=== PATIENT | female | born 1945 | race Caucasian/White ===

== ENCOUNTER 2025-05-08 13:59 | Outpatient (AMB) | payer OTHER, SELFPAY ==
--- OUTSIDE RECORDS SUMMARY | 2024-07-01 10:56 | XMS_ITS | Encounter Summary ---
Author Organization [facility] Address [address] [place] [address] Care Team Providers Care Keller Machine Operator Name Role Phone Gabe Shahid MD Primary Care Provider [phone] Encounter Details Date Type Department Care Team (Late st Contact Info) Description 07/01/2024 10:56 AM EDT Hospital Encounter TH HISTORIC ENCOUNTERS EASTERN CONVERSION ONLY Gabe Shahid MD [address] [facility] [address] [place] [phone] Social History Tobacco Use Types Packs/Day Years [...] Description 05/31/2025 8:10 AM EDT Office Visit [facility] - [address] [facility] [address] [place] [phone] Linsey Castro, ELIS [address] [place] [phone] 08/04/2025 10:20 AM EST Office Visit Gastroenterology - [address] [facility] [address] [place] [address] Natalie Le MD 299 [facility] [address] [place] [address] 01/18/2026 11:00 AM EDT Ancillary Procedure [facility] - [facility] [address] 300 [facility] 154 [place] [address] documented as of this encounter Procedures Procedure Name Priority Date/Time Associated Diagnosis Comments CR SPINE CERVICAL MIN 4 VIEWS Routine 07/04/2024 1:32 PM EDT documented in this encounter Results * CR SPINE CERVICAL MIN 4 VIEWS (07/04/2024 1:32 PM EDT) Anatomical Region Laterality Modality Radiographic Yin ging 07/01/2024 11:0 1 AM EDT Narrative 07/04/2024 1:32 PM EDT [facility] Diagnostic Imaging Department [address] [place] [address] Patient: MARJNGOZI /Age/Sex: 1945 - 79 - F Unit#: [id number] Location/Status: SPDIGEN/REG CLI Mnemonic/Ordering Site: SPINCER/SPDI Ordering Physician: GABE SHAHID MD CR Spine Cervical Min 4 Views - 07/01/241126 Report Status:Signed EXAMINATION: Cervical spine 4 views. [...] No visible acute fracture or dislocation seen. [id number] Dictating Physician: EULOGIO ALICIA Electronically Signed by: EULOGIO ALICIA Dic Date/Time: 07/04/24 1328 Sign date/Time: 07/04/24 1332 Procedure Note Eulogio Alicia MD - 07/12/2024 [facility] Diagnostic Imaging Department [address] [place] [address] Patient: NGOZI NELSON Bin [place]/Age/Sex: 1945 - 79 - F Unit#: [id number] Location/Status: SPDIGEN/REG CLI Mnemonic/Ordering Site: SPINCER/SPDI Ordering [...] No visible acute fracture or dislocation seen. [id number] Dictating Physician: EULOGIO ALICIA Electronically Signed by: [...] documented as of this encounter Care Teams Keller Machine Operator Relationship Specialty Start Date End Date Gabe Shahid MD [address] [place] [address] [place] [address] PCP - General 10/07/12 10/09/24 documented as of this encounter
--- OUTSIDE RECORDS SUMMARY | 2025-01-20 07:00 | XMS_ITS ---
Author Organization [facility] [place] Address [address] [facility] [address] [place] [address] Care Team Providers Care Spanish Translator Name Role Phone Butch Bo Unavailable [phone] REASON FOR VISIT Follow-up Appt Encounters Encounter Location Date Provider Diagnosis [address] [place] [address] 01/20/2025 Butch Bo Plan Of Treatment Next Appt Details Provider Name:Gwendolyn Turner, 05/29/2025 11:15:00 AM, 299 [facility], Suite [facility], [place], [address], [phone] Progress Notes * JOHN MCMAHANDOB:1945 (80 yo F)Acc No.[id number]:01/20/2025 Progress Notes Patient: JOHN VENEGAS Provider: Saúl ARMAS :1945 A ge:79 Y S ex:Female Date:01/20/2025 Address:[address] [place], [place] [phone] Subjective: * Chief Complaints: * F ollow-up Appt * Ocular Surgical History: Objective: Vision Examination: * Electronic signature of Dk Bo PA-C on 05/08/2025 at 03:22 PM EDT Sign off status: Pending * Provider: Saúl ARMAS Date: 0 01/20/2025 Generated for Printi ng/Faxing/eTransmitting on: 0 05/08/2025 03:22 PM EDT
--- OUTSIDE RECORDS SUMMARY | 2025-01-31 12:00 | XMS_ITS ---
Author Organization [facility] [place] Address [address] [facility] [address] [place] [address] Care Team Providers Care Merchandiser Seasonal Name Role Phone Butch Bo Unavailable [phone] REASON FOR VISIT Follow-up Appt Encounters Encounter Location Date Provider Diagnosis [facility], [address] [place] [address] 01/31/2025 Butch Bo Plan Of Treatment Next Appt Details Provider Name:Gwendolyn Turenr, 05/29/2025 11:15:00 AM, 299 [facility], Suite [facility], [place], [address], [phone] Progress Notes * JOHN MCMAHANDOB:1945 (80 yo F)Acc No.[id number]:01/31/2025 Progress Notes Patient: JOHN VENEGAS Provider: Saúl ARMAS :1945 A ge:79 Y S ex:Female Date:01/31/2025 Address:[address] [place], [place] [phone] Subjective: * Chief Complaints: * F ollow-up Appt * Ocular Surgical History: Objective: Vision Examination: * Electronic signature of Dk Bo PA-C on 05/08/2025 at 03:22 PM EDT Sign off status: Pending * Provider: Saúl ARMAS Date: 01/31/2025 Generated for Printi ng/Faxing/eTransmitting on: 0 05/08/2025 03:22 PM EDT
--- OUTSIDE RECORDS SUMMARY | 2025-03-29 12:30 | XMS_ITS ---
Author Organization [facility] [place] Address [address] [address] Care Team Providers Care Hospice Consultant Name Role Phone Gwendolyn Turner [phone] REASON FOR VISIT medication refill Medications Medication SIG (Take, Route, Frequency, Duration) Notes Start Date End Date Status Carvedilol 12.5 MG Tablet 1 tablet with food Orally Twice a day Active Losartan Potassium 100 MG Tablet 1 tablet Orally Once a day; Duration: 90 days Active Encounters Encounter Location Date Provider Diagnosis [facility], [address] [address] 03/29/2025 Gwendolyn Turner Benign essential hypertension I10 [...] Details Provider Name:Gwendolyn Turner, 05/29/2025 11:15:00 AM, [address] [place] [address], [place], [address], [phone] Progress Notes * MARJJOHN NESSDOB:1945 (80 yo F)Acc No.[id number]:03/29/2025 Patient: JOHN VENEGAS Provider: Carrie Turner :1945 A ge:80 Y S ex:Female Date:03/29/2025 Address:[address] [place], [place] [phone] Subjective: * Chief Complaints: * M edication [...] * Electronic signature of Hemalatha Turner on 05/08/2025 at 03:21 PM EDT Sign off status: Pending * Provider: Carrie Turner Date: 03/29/2025 Generated for Shanda silveira/Kenny/Isaías on: 05/08/2025 03:21 PM EDT
--- NOTE | 2025-05-08 14:06 | MHC.OFFVIS ---
Intake Visit Reasons: Hospital Follow Up Allergies erythromycin base Allergy (Unknown, Verified 05/01/25 16:01) Unknown lisinopril (From Zestril) Allergy (Unknown, Verified 05/01/25 16:01) Unknown HPI Comments Details: 80 years old woman with ulcerative colitis, atrial fibrillation, hypertension, and cardiac pacemaker was seen in September of 2024 for gait disorder and anxiety. She had a CAT scan of brain done in [facility] revealing mild microvascular ischemic disease of brain. An MRI of brain at [facility] in December of 2024 revealed mild diffuse cerebral atrophy and mild microvascular ischemic changes. With no specific treatment for gait disorder, escitalopram 10 mg was prescribed for management of anxiety. She is presenting with visual aura and word retrieval issues, with a differential diagnosis of seizure and migraine. She describes experiencing visual auras up to once every two months, starting with pinwheel lights in both eyes, which this time lasted for three hours. Onset occasions match descriptions as migraine aura without progression to headache. These episodes infrequently disrupt speech, resolved over approximately 24 hours, without residual deficits reported. She has undergone emergency assessments, including delayed MRI post-pacemaker installation, and experiences consistent yet transient visual phenomena alongside speech retrieval difficulties. [facility] Medical History (Updated 05/08/25 @ 14:41 by Lian Thayer MD) Multifactorial gait disorder Osteoarthritis Cerebral microvascular disease Anxiety disorder Review of Systems Const Details: - Neurologic: Reports visual aura with colorful pinwheel lights in both eyes lasting for several hours. Reports transient inability to retrieve words, difficulty recalling current president and birthdate during episodes. Reports staccato speech pattern during episodes. Denies associated headache. - Cardiovascular: Reports presence of pacemaker. - General: Reports history of multiple similar episodes over several years, typically resolving over 24 hours. Assessment & Plan Assessment & Plan (1) Anxiety: Code(s): F41.9 - Anxiety disorder, unspecified Category: Medical (2) Migraine equivalent syndrome: Comment: MRI brain WO at [facility] in Apr 2025: Questionable tiny acute infarct vs imaging artifact in left gonzalez radiata, mild T2 Flair lesions, ?MVD (reported) Code(s): G43.109 - Migraine with aura, not intractable, without status migrainosus Category: Medical (3) Seizure disorder: Code(s): G40.909 - Epilepsy, unspecified, not intractable, without status epilepticus Category: Medical (4) Cerebral microvascular disease: Code(s): I67.89 - Other cerebrovascular disease Category: Medical Plan Impression recommendations: The symptoms she reported to me most likely are from migraine causing migraine equivalent syndrome. The other differential diagnosis would be complex partial seizure disorder, which seems unlikely. This was not description of a stroke or transient ischemic attack. No changes in medicines are needed. As far as MRI report is concerned, unfortunately I was not able to open her CD. Even reading the report, diagnosis of stroke was uncertain. And finally, even if we except that as a new lesion, it would not explain her symptoms. Orders: Orders EEG electroencephalogram Today G40.909 - Epilepsy, unspecified, not intractable, without status epilepticus Coding Level of Care Code Est Pt Level 5 (04089) Diagnoses Anxiety F41.9 Migraine equivalent syndrome G43.109 Seizure disorder G40.909 Cerebral microvascular disease I67.89
--- OUTSIDE RECORDS SUMMARY | 2025-05-08 15:21 | XMS_ITS | Patient Health Record ---
Author Organization [facility] [place] Address [address] [facility] [address] [place] [address] Care Team Providers Care Burial Needs Salesperson Name Role Phone Butch Bo Unavailable [phone] Migration, Provider Unavailable Unavailable Gwendolyn Turner Unavailable [phone] Reason For Referral No Information Medications Medication SIG (Take, Route, Frequency, Duration) Notes Start Date End Date Status Carvedilol 12.5 MG Tablet 1 tablet with food Orally Twice a day Active Losartan Potassium 100 MG Tablet 1 tablet Orally Once a day; Duration: 90 days Active Encounters Encounter Location Date Provider Diagnosis [facility], [address] [address] 05/12/2024 Provider Migration [facility], [address] [address] 06/13/2024 Provider Migration [facility], [address] [address] 07/12/2024 Provider Migration [facility], [address] [address] 09/22/2024 Provider Migration [facility], [place] [address] [address] 10/04/2024 Provider Migration [facility], [address] [address] 10/04/2024 Butch Bo [facility] [place] [address] [address] 01/03/2025 Butch Bo [facility], [address] [address] 01/13/2025 Butch Bo [facility], [address] [address] 01/20/2025 Butch Bo [facility] [place] [address] [facility] [address] [place] [address] 01/31/2025 Butch Bo [facility] [place] [address] [facility] [address] [place] [address] 03/29/2025 Gwendolyn Turner Benign essential hypertension I10 Assessments Encounter Date Diagnosis (ICD Code) Assessment Notes Treatment Notes Treatment Clinical Notes Section Notes 03/29/2025 Benign essential hypertension (ICD-10 - I10) Plan Of Treatment Next Appt Details Provider Name:Gwendolyn Turner, 05/29/2025 11:15:00 AM, [address] [facility], [address] [facility], [place], [address], [phone] Insurance Providers Payer Name Payer Address Payer Phone Subscriber Number Group Number Insured Name Patient Relationship to Insured Coverage Start Date Coverage End Date [facility] Insurance [address] [place] [address] [id number] JOHN MCMAHAN Self - patient is the insured
--- OUTSIDE RECORDS SUMMARY | 2025-05-08 15:22 | XMS_ITS | Encounter Summary ---
Author Organization [facility] [address] Address [address] [place] [address] Care Team Providers Care In Flight Refueling Craftsman Name Role Phone Butch Bo Primary Care Provider [phone] Reason for Visit * Reason Onset Date Comments Appointment 04/24/2025 Encounter Details Date Type Department Care Team (Late st Contact Info) Description 04/24/2025 Telephone [facility] Cardiology [facility] [address] [facility] [address] [place] [phone] Delon Wasserman MD [address] [facility] [address] [place] [address] Social History Tobacco Use Types Packs/Day Years [...] on file documented as of this encounter Progress Notes * Rosalinda Arredondo MA - 04/25/2025 3:36 PM EDT Records have been scanned in and attached to telephone encounter. * CHANDA Serna - 04/24/2025 3:50 PM EDT Can you please obtain [facility] records and scanned in for follow-up visit with SL * Hailey Rueda - 04/24/2025 3:23 PM EDT Patient's daughter called to schedule a hospital follow up appointment. Informed the the daughter someone will contact her with an appointment and if she has any questions she is more than welcomed to call the office back. documented in this encounter Plan of Treatment Upcoming Encounters Date Type Department Care Team (Late st Contact Info) Description 05/31/2025 8:10 AM EDT Office Visit [facility] Cardiology [facility] [address] [phone] Linsey Castro NP [address] [facility] [address] [place] [address] 08/04/2025 10:20 AM EST Office Visit Gastroenterology - [address] [address] Natalie Le MD [address] [address] 01/18/2026 11:00 AM EDT Ancillary Procedure [facility] [address] [phone] documented as of this encounter Visit Diagnoses Not on filedocumented in this encounter Care Teams In Flight Refueling Craftsman Relationship Specialty Start Date End Date Butch Bo PA [address] [address] PCP - General Primary Care 10/10/24 documented as of this encounter
--- OUTSIDE RECORDS SUMMARY | 2025-05-08 15:22 | XMS_ITS | Encounter Summary ---
Author Organization [facility] Address [address] [place] [address] Care Team Providers Care Acid Plant Helper Name Role Phone uBtch Bo Primary Care Provider [phone] Encounter Details Date Type Department Care Team (Late Contact Info) Description 07/20/[address] [facility] Cardiology [facility] - [facility] [address] 300 [facility] 154 [place] [address] Linsey Castro NP 300 [facility] [address] [place] [address] Social History Tobacco Use Types Packs/Day Years [...] Encounters Date Type Department Care Team (Late Contact Info) Description 05/31/2025 8:10 AM EDT Office Visit [facility] Cardiology [facility] - [facility] 154 300 [facility] 154 [place] [address] Linsey Castro NP 300 [facility] [address] [place] [address] 08/04/2025 10:20 AM EST Office Visit Gastroenterology - 299 [address] 299 [facility] [address] [place] [address] Natalie Le MD [address] [facility] [address] [place] [address] 01/18/2026 11:00 AM EDT Ancillary Procedure [facility] - [facility] [address] [facility] 154 [place] [phone] documented as of this encounter Visit Diagnoses Not on filedocumented in this encounter Additional Health Concerns Infection Onset Date Last Indicated Resolved Time C. difficile Rule-Out 01/06/2025 01/06/20252024 2:14 PM EDT Gastrointestinal Rule-Out 01/06/2025 01/06/2025 3:45 PM EDT documented as of this encounter Care Teams Acid Plant Helper Relationship Specialty Start Date End Date Butch Bo PA 299 [facility] [address] [place] [address] PCP - General Primary Care 10/10/24 documented as of this encounter
--- OUTSIDE RECORDS SUMMARY | 2025-05-08 15:22 | XMS_ITS | Encounter Summary ---
Author Organization [facility] Address [address] [place] [address] Care Team Providers Care Hydroelectric Station Chief Name Role Phone Butch Bo Primary Care Provider [phone] Encounter Details Date Type Department Care Team (Late Contact Info) Description 01/31/2025 Lab Requisition [facility] - Main Lab 299 [facility] [place] [phone] Butch Bo PA [address] [facility] [address] [place], [place] [id number] Essential (primary) hypertension; Cardiac arrhythmia, unspecified; Chronic fatigue, unspecified; Other detention (current) drug therapy Social History Tobacco Use Types Packs/Day Years [...] Description 05/31/2025 8:10 AM EDT Office Visit [facility] - [address] [facility] [address] [place] [address] LatLinsey pop NP 300 [facility] 154 [place] [phone] 08/04/2025 10:20 AM EST Office Visit Gastroenterology - 299 [address] 299 [facility] [address] [place] [address] Naatlie Le MD 299 [facility] 419 [place] [address] 01/18/2026 11:00 AM EDT Ancillary Procedure [facility] - [facility] [address] 300 [facility] 154 [place] [phone] documented as of this encounter Procedures Procedure Name Priority Date/Time Associated Diagnosis Comments URINALYSIS WITH REFLEX MICROSCOPIC AND CULTURE Routine 01/31/2025 12:00 AM EDT Essential (primary) hypertension Cardiac arrhythmia, unspecified Chronic fatigue, unspecified Other detention (current) drug therapy ALVAREZ URINE CULTURE TUBE Routine 01/31/2025 12:00 AM EDT Essential (primary) hypertension Cardiac arrhythmia, unspecified Chronic fatigue, unspecified Other detention (current) drug therapy TIGER TOP URINE TUBE Routine 01/31/2025 12:00 AM EDT Essential (primary) hypertension Cardiac arrhythmia, unspecified Chronic fatigue, unspecified Other detention (current) drug therapy YELLOW URINE NO ADDITIVE Routine 01/31/2025 12:00 AM EDT Essential (primary) hypertension Cardiac arrhythmia, unspecified Chronic fatigue, unspecified Other termite treater (current) drug therapy URINALYSIS WITH REFLEX MICROSCOPIC AND CULTURE Routine 01/31/2025 12:00 AM EDT Essential (primary) hypertension Cardiac arrhythmia, unspecified Chronic fatigue, unspecified Other detention (current) drug therapy CULTURE URINE Routine 01/31/2025 12:00 AM EDT Essential (primary) hypertension Cardiac arrhythmia, unspecified Chronic fatigue, unspecified Other termite treater (current) drug therapy documented in this encounter Results * Culture urine (01/31/2025 12:00 AM EDT) Culture, Urine 10,000-49,000 CFU/mL Mixed urogenital mar ykate, no uropathogens present. Suggest repeat specimen if clinically indicated. 02/02/2025 11:36 AM EDT [facility] Urine Urine specimen obtained by clean catch procedure / Unknown 01/31/2025 01/31/2025 10:12 PM EDT [facility] MICROBIOLOGY - GENERAL ORD ERABLES Final Result Performing Organization Address City/[facility]/ZIP Co de Phone Number [facility] [address] [place] [address], [place] [phone] * Yellow urine no additive (01/31/2025 12:00 AM EDT) Extra Tube Hold for add-ons. 01/31/2025 8:01 PM EDT [facility] Comment:Auto resulted. Urine Urine specimen obtained by clean catch procedure / Unknown 01/31/2025 01/31/2025 6:26 PM EDT us [facility] URINE ORDERABLES Final Res ult [facility] [address] [place] [address], [place] [phone] * Rickman top urine tube (01/31/2025 12:00 AM EDT) Extra Tube Hold for add-ons. 01/31/2025 8:01 PM EDT [facility] Comment:Auto resulted. Urine Urine specimen obtained by clean catch procedure / Unknown 01/31/2025 01/31/2025 6:13 PM EDT [facility] URINE ORDERABLES Final Res ult Performing Organization Address [facility]/ZIP Co de Phone Number [facility] [address] [place] [address], [place] [phone] * Alvarez urine culture tube (01/31/2025 12:00 AM EDT) Pathologist [facility] Extra Tube Hold for add-ons. 01/31/2025 8:01 PM EDT [facility] Comment:Auto resulted. Urine Urine specimen obtained by clean catch procedure / Unknown 01/31/2025 01/31/2025 6:13 PM EDT [facility] URINE ORDERABLES Final Res ult Performing Organization Address [facility]/ZIP Co de Phone Number [facility] [address] [place] [address], [place] [phone] * (ABNORMAL) Urinalysis with reflex microscopic and culture (01/31/2025 12:00 AM EDT) [facility] Specific Gamaliel Urine 1.007 1.003 - 1.030 LAB URINALYSIS - AUTOMATED METHOD 01/31/2025 10:12 PM [facility] pH, Urine 6.0 5.0 - 8.0 pH LAB URINALYSIS - AUTOMATED METHOD 01/31/2025 10:12 PM [facility] Leukocytes, Urine Large(A) Negative LAB URINALYSIS - AUTOMATED METHOD 01/31/2025 10:12 PM [facility] Nitrite, Urine Negative Negative LAB URINALYSIS - AUTOMATED METHOD 01/31/2025 10:12 PM [facility] Protein, Urine Negative <=Trace mg/dL LAB URINALYSIS - AUTOMATED METHOD 01/31/2025 10:12 PM [facility] Glucose, Urine Negative Negative mg/dL LAB URINALYSIS - AUTOMATED METHOD [facility] Ketones, Urine Negative Negative mg/dL LAB URINALYSIS - AUTOMATED METHOD 01/31/2025 10:12 PM [facility] Urobilinogen, Urine 0.2 0.2 - 1.0 mg/dL LAB URINALYSIS - AUTOMATED METHOD 01/31/2025 10:12 PM [facility] Bilirubin, Urine Negative Negative LAB URINALYSIS - AUTOMATED METHOD 01/31/2025 10:12 PM [facility] Blood, Urine Negative Negative LAB URINALYSIS - AUTOMATED METHOD 01/31/2025 10:12 PM [facility] RBC, Urine 4.0 0 - 4 /HPF LAB URINALYSIS - AUTOMATED METHOD 01/31/2025 10:12 PM [facility] WBC, Urine 75.3(H) 0 - 4 /HPF LAB URINALYSIS - AUTOMATED METHOD 01/31/2025 10:12 PM [facility] Squamous Epithelial, Urine 67(H) 0 - 60 /LPF LAB URINALYSIS - AUTOMATED METHOD 01/31/2025 10:12 PM [facility] Bacteria, Urine Few(A) Negative /HPF LAB URINALYSIS - AUTOMATED METHOD 01/31/2025 10:12 PM [facility] Hyaline Casts, Urine 2.0 0 - 3 /LPF LAB URINALYSIS - AUTOMATED METHOD 01/31/2025 10:12 PM [facility] Urine Urine specimen obtained by clean catch procedure / Unknown 01/31/2025 01/31/2025 6:13 PM EDT us [facility] URINE ORDERABLES Final Res ult [facility] [address] [place] [address], [place] [phone] documented in this encounter Visit Diagnoses Diagnosis Essential (primary) hypertension Unspecified essential hypertension Cardiac arrhythmia, unspecified Chronic fatigue, unspecified Other termite treater (current) drug therapy Encounter for adjustment or management of cardiac device documented in this encounter Care Teams Hydroelectric Station Chief Relationship Specialty Start Date End Date Butch Bo PA [address] [place] [address] PCP - General Primary Care 10/10/24 documented as of this encounter
--- OUTSIDE RECORDS SUMMARY | 2025-05-08 15:22 | XMS_ITS | Clinical Summary ---
Author Organization [facility] Address [address] [place] [address] Care Team Providers Care Keno Writer / Runner Name Role Phone Danilo Shahid MD Primary Care Provider [phone] Allergies Active Allergy Reactions Criticality Noted Date Comments Mesalamine 10/05/2020 Calcium 10/05/2020 Lisinopril 10/05/2020 Medications Medication Sig Dispensed Refills Start Date End Date Status Probiotic Product (ALIGN) 4 MG CAPS Take 4 mg by mouth daily. 0 Active BIOTIN PO Take by mouth daily. 0 Acti ve betamethasone valerate (VALISONE) 0.1 % cream Apply 1 application topically 2 (two) times a day. 0 Active carvedilol (COREG) 6.25 MG tablet Take 6.25 mg by mouth 2 (two) times a day with meals. 0 Active cyanocobalamin 1000 MCG tablet Take 1,000 mcg by mouth daily. 0 Active folic acid (FOLVITE) tablet 1 mg Take 1 mg by mouth daily. 0 Active loperamide (IMODIUM) 2 MG capsule Take 2 mg by mouth 2 (two) times a day. 0 Active losartan (COZAAR) 100 MG tablet Take 100 mg by mouth daily. 0 Active Dronedarone HCl (MULTAQ) 400 MG tablet Take 400 mg by mouth 2 (two) times a day with meals. 0 Active mesalamine (PENTASA) 250 MG CR capsule Take 500 mg by mouth 4 (four) times a day. 0 Active sertraline (ZOLOFT) 50 MG tablet Take 50 mg by mouth daily. 0 Active ascorbic acid (VITAMIN C) 500 MG tablet Take 500 mg by mouth daily. 0 Active vitamin D3 (VITAMIN D3) 25 MCG (1000 UT) tablet Take 1,000 Units by mouth daily. 0 Active rivaroxaban (Xarelto) 20 MG TABS tablet Take 20 mg by mouth every evening. 0 Active Mesalamine-Cleanser (ROWASA) [address] rectally every other day. 0 Active cyanocobalamin (VITAMIN B12) 1000 MCG/ML injection Inject 1,000 mcg into the muscle every 21 days. 0 Active potassium chloride ER (K-DUR,KLOR-CON) tablet 10 mEq Take 10 mEq by mouth daily. 0 Active Multiple Vitamins-Minerals (CENTRUM ADULTS PO) Take by mouth daily. 0 Active Active Problems Problem Noted Date Diagnosed Date Ulcerative colitis 10/28/2020 Osteopenia 10/28/2020 Hypertension 10/28/2020 Paroxysmal atrial fibrillation 10/28/2020 Anticoagulated by anticoagulation treatment 10/15 Sick sinus syndrome 10/28/2020 Family History Medical History Relation Name Comments Hypertension Brother Heart disease Father Hypothyroidism Mother Atrial fibrillation Sister Relation Name Status Comments Brother Alive Father (Age 66) [place] at age 44 Mother (Age 89) No specifi c cause of noted Sister Alive Social History Tobacco Use Types Packs/Day Years Used Date Smoking Tobacco: Never Smokeless Tobacco: Never Alcohol Use Standard Drinks/Week Comments No 0 (1 standard drink = 0.6 oz pur e alcohol) Sex and Gender Information Value Date Recorded Sex Assigned at Not on file Gender Identity Not on file Sexual Orientation Not on file Job Start Date Occupation Industry Not on file Not on file Not on file Last Filed Vital Signs Vital Sign Reading Time Taken Comments Blood Pressure 155/78 10/19/2020 10:46 AM EST Pulse 65 10/19/2020 10:46 AM EST Temperature 36.2 C (97.1 F) 10/19/2020 10:46 AM EST Respiratory Rate - - Oxygen Saturation 100% 10/19/2020 10:46 AM EST Inhaled Oxygen Concentration - - Weight 71.8 kg (158 lb 6.4 oz) 10/19/2020 10:46 AM EST Height 162.6 cm (5' 4 ) 10/19/2020 10:46 AM EST Body Mass Index 27.19 10/19/2020 10:46 AM EST Plan of Treatment Health Maintenance Due Date Last Done Comments Hepatitis C Screening 1945 COVID-19 Vaccine (#1) 1945 Depression Screening 1959 Preventative Health Evaluation 1965 DTap / Tdap / Td (1 - Tdap) 1966 Shingrix-Zoster Vaccine (1 of 2) 1997 Fall Risk Assessment 02/13/2012 Osteoporosis Screening (DEXA Scan) 02/13/2012 Pneumococcal Vaccine (1 of 1 - PCV) 02/13/2012 RSV Adult > 60+ Yrs or Pregn ant (1 - 1-dose 75+ series) 2022 Influenza Vaccine (#1) 2025 Hepatitis B Vaccines Aged Out No long er eligible based on patient's age to complete this topic RSV Ped < 20 months Aged Out No longe r eligible based on patient's age to complete this topic Care Teams Keno Writer / Runner Relationship Specialty Start Date End Date Danilo Shahid MD [address] [place] [address] PCP - General Internal Medicine 10/19/20
--- OUTSIDE RECORDS SUMMARY | 2025-05-08 15:22 | XMS_ITS | Clinical Summary ---
Author Organization [address] [place] [address] Address [address] [place] [address] Phone Care Team Providers Care Welding Machine Operator Electron Beam Name Role Phone Butch Bo Primary Care Provider [phone] Allergies Active Allergy Reactions Criticality Noted Date Comments Calcium 10/05/2020 Calcium Channel Blocking Age nt Diltiazem Analogues 05/06/2024 Lisinopril Hives High 10/05/2020 Mesalamine 10/05/2020 Nifedipine 07/01/2024 Medications biotin 5,000 mcg tablet,disinteg rating Take 5,000 mcg by mouth 2 (two) times a day. Active dronedarone (Multaq) 400 mg tablet Take 1 tablet (400 mg total) by mouth 2 (two) times a day with meals. Active potassium chloride (KLOR-CON M10) 10 mEq CR tablet Take 1 tablet (10 mEq total) by mouth 1 (one) time each day if needed. Tablet may be swallowed whole (do not crush/chew/suck on) OR broken in half and each half swallowed separately OR dissolved (whole tablet) in ~4 ounces of water (allow ~2 minutes to dissolve, stir well and administer immediately). Active folic acid (FOLVITE) 1 mg tablet Take 1 tablet (1 mg total) by mouth 1 (one) time each day. Active meclizine (ANTIVERT) 25 mg tablet Take 1 tablet (25 mg total) by mouth 3 (three) times a day if needed for dizziness. Active Pentasa 500 mg CR capsuleIndicati ons:ulcerative colitis TAKE 2 CAPSULES (1,000 MG TOTAL) BY MOUTH 4 (FOUR) TIMES A DAY. DO NOT CRUSH, CHEW, OR SPLIT. 720 each 3 08/16/20 24 025 Active Xarelto 20 mg tablet TAKE 1 TABLET BY MOUTH EVERY DAY 90 tablet 3 09/20/19 25 Active carvediloL (COREG) 12.5 mg tablet Take 1.5 tablets by mouth twice a day 270 tablet 3 09/21/19 25 Active syringe with needle (BD Luer-Anabella Syringe) 3 mL 22 gauge x 1 syringeIndicati ons:B12 deficiency USE TO INJECT B12 SHOT EVERY MONTH 4 each 3 11/03/19 25 Active escitalopram (LEXAPRO) 10 mg tablet Take 1 tablet (10 mg total) by mouth 1 (one) time each day. Active cholecalciferol (VITAMIN D-3) 10 mcg (400 unit) tablet Take 1 tablet (400 Units total) by mouth 1 (one) time each day. Active cyanocobalamin (VITAMIN B-12) 1,000 mcg/mL injectionIndica tions:Low vitamin B12 level Inject 1 mL (1,000 mcg total) under the skin every 30 (thirty) days. 3 mL 04/26/20 25 Active losartan-hydroC HLOROthiazide (Hyzaar) 100-25 mg per tablet Take 1 tablet by mouth 1 (one) time each day. 30 each 04/28/20 25 Active losartan (COZAAR) 100 mg tablet Take 1 tablet (100 mg total) by mouth 1 (one) time each day. 025 Discontinu ed(Alterna te therapy) cyanocobalamin (VITAMIN B-12) 1,000 mcg/mL injectionIndica tions:Low vitamin B12 level INJECT 1ML SUBCUTANEOUSLY ONCE A MONTH 3 mL 02/14/20 25 025 Discontinu ed(Reorder ) mesalamine (ROWASA) 4 gram/60 mL enemaIndication s:Irritable bowel syndrome, unspecified type INSERT 1 ENEMA INTO RECTUM AT BEDTIME DIRECTED 1 each 2 03/27/20 25 025 losartan-hydroC HLOROthiazide (Hyzaar) 100-25 mg per tablet Take 1 tablet by mouth 1 (one) time each day. 90 each 3 04/27/20 25 025 Discontinu ed(Reorder ) Active Problems Problem Noted Date Diagnosed Date PVC (premature ventricular contraction) 01/21/20 22 Pure hypercholesterolemia 02/27/2021 Paroxysmal atrial fibrillation (CMS/HCC V24, CMS /HCC V28) 02/27/2021 Assessment & Plan (01/31/2025 2:47 PM EDT): 1 brief episode of atrial fibrillation while dealing with a GI virus. Currently maintaining sinus rhythm. She is anticoagulated we spent some time talking about possibly placing a left atrial appendage closure device. She has a [id number] score of 3 documented atrial fibrillation and potential rationale with syncopal episodes and she will give that some thought. I did discuss the procedure the potential complications and procedural aspects in detail with her and her daughter. Continue with Ina. Would consider pulmonary vein isolation at the time of left atrial appendage closure if she moved ahead with that. Assessment & Plan (07/19/2024 8:31 AM EST): No recurrence. Multiple Apple Watch EKGs with complaints of fluttering, she questions recurrence of atrial fibrillation. Review of these reveals either a sinus rate above her pacing rate or isolated PACs. Confirmed no atrial fibrillation. Tolerating anticoagulant without issues of bleeding. Normal renal function, risks and benefits discussed. Palpitations 02/27/2021 Benign essential hypertension 02/27/2021 Assessment & Plan (01/31/2025 2:47 PM EDT): Systolic blood pressure somewhat elevated. She did come off of spironolactone as she was quite dehydrated after GI illness. She is on losartan and carvedilol. I encouraged a low-sodium diet particularly given some mild dependent ankle edema. I am a bit reluctant to make her blood pressure regimen more aggressive given her spells of lightheadedness. I asked her to check her blood pressure during these episodes to see if she gets any low readings. I would not rule out going back on spironolactone if necessary. Assessment & Plan (07/19/2024 8:33 AM EST): Multiple medication combinations, trialed, fatigue did not improve with discontinuation of carvedilol. She resumed at 12-1/2 mg twice daily with discontinuation of spironolactone. Admits that blood pressure was much better controlled on spironolactone but she does not wish to retrial. We did discuss that spironolactone would not calls an isolated loose stool. Agreed to increase carvedilol to 1-1/2 tablets twice daily. She will keep a blood pressure log and report back via the portal. She maintains a healthy weight and diet and activity level. Sick sinus syndrome (CMS/HCC V24, CMS/HCC V28) 0 12/12/2020 Assessment & Plan (01/31/2025 2:45 PM EDT): History of sick sinus syndrome noted normally functioning dual-chamber pacemaker. The device was programmed to AAI mode as the patient was very sensitive to ventricular pacing. Given her episodes of near syncope I am going to cmm programmer her to a dual-chamber mode with a very long AV delay to minimize pacing. She is okay with this trial. Her NE interval is quite normal and I doubt that she is having heart block but certainly possible if she is having vagal episodes. 2 years of battery longevity. I did lower the lower rate to 60 bpm Assessment & Plan (07/19/2024 8:30 AM EST): Normally functioning pacemaker, pacing 66%. Adequate HR variability. 40% battery life Encounters Date Type Department Care Team Description 05/05/2025 Telephone [facility] - [address] [place] [address] Delon Wasserman MD 04/27/2025 Telephone [facility] - [address] [place] [address] Delon Wasserman MD 04/24/2025 Telephone [facility] - [address] [place] [address] Delon Wasserman MD 03/28/2025 9:35 AM EDT Ancillary Procedure [facility] - [address] [place] [address] 03/07/2025 11:10 AM EDT Office Visit [facility] - [address] [place] [address] Linsey Castro, CEMETERY WORKERS SUPERVISOR Paroxysmal atrial fibrillation (CMS/HCC V24, CMS/HCC V28) (Primary Dx) from Last 3 Months Medical History Medical History Date Comments Sick sinus syndrome (CMS/HCC V24, CMS/HCC V28) Benign essential hypertension Palpitations Paroxysmal atrial fibrillation (CMS/HCC V24, CMS /HCC V28) PVC (premature ventricular contraction) Crohn disease (CMS/HCC V24, CMS/HCC V28) Social History Tobacco Use Types Packs/Day Years Used Date Smoking Tobacco: Never Smokeless Tobacco: Never Alcohol Use Standard Drinks/Week Comments Not Currently 0 (1 standard drink = 0.6 oz pur e alcohol) Comments Unknown Sex and Gender Information Value Date Recorded Sex Assigned at Not on file Legal Sex Female 2:02 AM EST Gender Identity Not on file Sexual Orientation Not on file Obstetrics History Last Filed Vital Signs Vital Sign Reading Time Taken Comments Blood Pressure 140/80 03/07/2025 10:57 AM EDT Pulse 70 03/07/2025 10:57 AM EDT Temperature 36.7 C (98 F) 01/03/2025 11:07 PM EDT Respiratory Rate 17 01/04/2025 12:33 AM EDT Oxygen Saturation 97% 03/07/2025 10:57 AM EDT Inhaled Oxygen Concentration - - Weight 68.5 kg (151 lb) 03/07/2025 10:57 AM EDT Height 157.5 cm (5' 2 ) 03/07/2025 10:57 AM EDT Body Mass Index 27.62 03/07/2025 10:57 AM EDT Plan of Treatment Upcoming Encounters Date Type Department Care Team (Late st Contact Info) Description 05/31/2025 8:10 AM EDT Office Visit [facility] - [address] [place] [address] Linsey Castro NP [address] [place] [phone] 08/04/2025 10:20 AM EST Office Visit Gastroenterology - [address] [facility] [address] [place] [address] Natalie Le MD 299 [facility] [address] [place] [address] 01/18/2026 11:00 AM EDT Ancillary Procedure [facility] - [facility] [address] [facility] [address] [place] [phone] Health Maintenance Due Date Last Done Comments Pneumococcal Vaccine: 50+ Years (1 of 1 - PCV) 1997 Falls Risk Assessment 08/23/2022 Hepatitis C Screening 08/23/2022 Osteoporosis Screening (Bone Density Screening) 08/23/2022 Social Influencers of Health Screening 08/23/2022 Depression Screening 09/14/2024 COVID-19 Vaccine ( season) 2024 06/23/2024, 08/18/2023, 10/22/2022, Additional history exists Influenza Vaccine (#1) 2025 , 06/18/2022, 06/11/2021, Additional history exists Hypertension/CHF/CAD Annual BMP Blood Test 01/03/2026 01/03/2025, 01/03/2025, 05/06/2024, Additional history exists Cholesterol Screening (Lipid Panel) 01/03/2030 01/03/2025 DTaP,Tdap,and Td Vaccines (2 - Td or Tdap) 12/31/2030 12/31/2020 Zoster Vaccines Completed 01/01/2022, 10/04/2021 RSV Immunization Adult Patients Completed 08/01/2024 Colorectal Cancer Screening: Colonoscopy Discontinued 12/02/2024 HIB Vaccines Aged Out No longer eligi ble based on patient's age to complete this topic HPV Vaccines Aged Out No longer eligi ble based on patient's age to complete this topic Hepatitis A Vaccines Aged Out No long er eligible based on patient's age to complete this topic Hepatitis B Vaccines Aged Out No long er eligible based on patient's age to complete this topic IPV Vaccines Aged Out No longer eligi ble based on patient's age to complete this topic MMR Vaccines Aged Out No longer eligi ble based on patient's age to complete this topic Meningococcal ACWY Vaccine Aged Out N o longer eligible based on patient's age to complete this topic Meningococcal B Vaccine Aged Out No l onger eligible based on patient's age to complete this topic RSV Immunization Patients Under 20 months Aged Out No longer eligible based on patient's age to complete this topic Varicella Vaccines Aged Out No longer eligible based on patient's age to complete this topic Medical Devices Implanted Type Area Financial Services Rep Device Identifier Shelf Expiration Date Model / Serial / Lot SaloinCollecta Jeanna 8 Brittany [id number] Implanted:12/2014 (Quantity not on file) Cardiac Pacemaker [employer] FAISALUNA 8 BRITTANY / [id number] / Procedures Procedure Name Priority Date/Time Associated Diagnosis Comments EXTERNAL CLINICAL LAB Routine 04/24/2025 3:34 PM EDT CARDIAC DEVICE CHECK- REMOTE- MURJ Routine 03/28/2025 9:33 AM EDT COMPREHENSIVE METABOLIC PANEL Routine 01/03/2025 12:43 PM EDT Essential hypertension, malignant Avitaminosis D Ventricular arrhythmia LIPID PANEL WITH REFLEX TO DIRECT LDL Routine 01/03/2025 12:43 PM EDT Essential hypertension, malignant Avitaminosis D Ventricular arrhythmia EXTERNAL COLONOSCOPY REPORT Routine 12/02/2024 10:01 AM EDT from Last 3 Months or Most Recently Relevant to Health Maintenance Results * External clinical lab (04/24/2025 3:34 PM EDT) us Historical Provider LAB BLOOD ORDERABLES Shelia l Result * Cardiac device check - Remote- MURJ (03/28/2025 9:33 AM EDT) Date Time Interrogation Session [id number] CV DEVICE CHECK Type Interrogation Session Remote CV DEVICE CHECK Implantable Pulse Generator Financial Services Rep BIO CV DEVICE CHECK Implantable Pulse Generator Type IPG CV DEVICE CHECK Implantable Pulse Generator Model Eluna 8 BRITTANY CV DEVICE CHECK Implantable Pulse Generator Serial Number [id number] CV DEVICE CHECK Implantable Pulse Generator Implant Date [id number] CV DEVICE CHECK Battery Remaining Percentage 35.00 CV DEVICE CHECK Battery Status Middle of Service CV DEVICE CHECK Wesley Statistic RA Percent Paced 40.00 CV DEVICE CHECK Wesley Statistic RV Percent Paced 17.00 CV DEVICE CHECK Atrial Tachy Statistic AT/AF [place] Percent 0.00 CV DEVICE CHECK Lead Channel Sensing Intrinsic Amplitude 0.600 CV DEVICE CHECK Lead Channel Setting Sensing Sensitivity 0.50 CV DEVICE CHECK Lead Channel Impedance Value 429 CV DEVICE CHECK Lead Channel Pacing Threshold Amplitude 1.200 CV DEVICE CHECK Lead Channel Pacing Threshold Pulse Width 0.4 CV DEVICE CHECK Lead Channel RA Pacing Threshold Date 2025-03-23 CV DEVICE CHECK Lead Channel Setting Pacing Amplitude 2.200 CV DEVICE CHECK Lead Channel Setting Pacing Pulse Width 0.4 CV DEVICE CHECK Lead Channel Sensing Intrinsic Amplitude 1.700 CV DEVICE CHECK Lead Channel Impedance Value 332 CV DEVICE CHECK Lead Channel RV Pacing Threshold Date 2025-03-23 CV DEVICE CHECK Lead Channel Setting Pacing Amplitude 3.000 CV DEVICE CHECK Lead Channel Setting Pacing Pulse Width 0.4 CV DEVICE CHECK Wesley Setting Mode (NBG Code) DDD CV DEVICE CHECK Wesley Setting Lower Rate Limit 60 CV DEVICE CHECK Wesley Setting AT Mode Switch Rate 160 CV DEVICE CHECK Wesley Setting Maximum Tracking Rate 130 CV DEVICE CHECK Wesley Setting Maximum Sensor Rate 120 CV DEVICE CHECK Wesley Setting PAV Delay 140 CV DEVICE CHECK Wesley Setting TRINO Delay 115 CV DEVICE CHECK Date of Service 2025-05-30 CV DEVICE CHECK Anatomical Region Laterality Modality Device Interroga tion 03/23/2025 2:49 AM EDT Impressions 03/28/2025 9:27 AM EDT Normal Remote: No Events RV Capture control disabled / RV sensing < limit* Normal Device Function * Alerts or events: None * Battery: Battery is at 35%, * Sensing, impedance and thresholds reviewed * Programmed parameters reviewed * Presenting rhythm reviewed * Heart Rate Histograms reviewed * No significant changes noted Narrative Procedure Note Apurva Muhammad PA - 03/28/2025 IMPRESSION: Normal Remote: No Events RV Capture control disabled / RV sensing < limit* Normal Device Function * Alerts or events: None * Battery: Battery is at 35%, * Sensing, impedance and thresholds reviewed * Programmed parameters reviewed * Presenting rhythm reviewed * Heart Rate Histograms reviewed * No significant changes noted us Apurva ARMAS CV IMPLANTABLE CARDIAC DEVICE NE OCEDURES Final Result * (ABNORMAL) Lipid panel with reflex to direct LDL (01/03/2025 12:43 PM EDT) Cholesterol 224(H) 0 - 200 mg/dL LAB CHEMISTRY METHOD 01/03/2025 3:12 PM EDT [facility] Triglycerides 72 0 - 150 mg/dL LAB CHEMISTRY METHOD 01/03/2025 3:12 PM EDT [facility] HDL 87 >=40 mg/dL LAB CHEMISTRY METHOD 01/03/2025 3:12 PM EDT [facility] LDL Calculated 123(H) 0 - 100 mg/dL LAB CHEMISTRY METHOD 01/03/2025 3:12 PM EDT [facility] VLDL Cholesterol Derick 14.4 mg/dL LAB CHEMISTRY METHOD 01/03/2025 3:12 PM EDT [facility] Non HDL Chol. (LDL+VLDL) 137 <145 mg/dL LAB CHEMISTRY METHOD 01/03/2025 3:12 PM EDT [facility] Chol/HDL Ratio 2.6 0.0 - 4.4 LAB CHEMISTRY METHOD 01/03/2025 3:12 PM EDT [facility] Blood Venous blood specimen / Unknown Venipuncture / Unknown 01/03/2025 12:43 PM EDT 01/03/2025 1:31 PM EDT us Butch ARMAS LAB BLOOD ORDERABLES Final Res ult [facility] [address] [place] [address], [place] [phone] * (ABNORMAL) Comprehensive metabolic panel (01/03/2025 12:43 PM EDT) Sodium 134 133 - 145 mmol/L LAB CHEMISTRY METHOD 01/03/2025 3:10 PM [facility] Potassium 4.0 3.5 - 5.5 mmol/L LAB CHEMISTRY METHOD 01/03/2025 3:10 PM [facility] Chloride 101 96 - 110 mmol/L LAB CHEMISTRY METHOD 01/03/2025 3:10 PM [facility] CO2 23 21 - 32 mmol/L LAB CHEMISTRY METHOD 01/03/2025 3:10 PM [facility] Anion Gap 10 3 - 11 LAB CHEMISTRY METHOD 01/03/2025 3:10 PM [facility] Glucose 103(H) 70 - 100 mg/dL LAB CHEMISTRY METHOD 01/03/2025 3:10 PM [facility] BUN 5 5 - 25 mg/dL LAB CHEMISTRY METHOD 01/03/2025 3:10 PM [facility] Creatinine 0.54 0.50 - 1.10 mg/dL LAB CHEMISTRY METHOD 01/03/2025 3:10 PM [facility] eGFR 95 >=60 mL/min/1. 73m2 LAB CHEMISTRY METHOD 01/03/2025 3:10 PM [facility] Comment:Calculation based on the Chronic Kidney Disease Epidemiology Collaboration (CKD-EPI) equation refit without adjustment for race. BUN/Creatinine Ratio 9.3 LAB CHEMISTRY METHOD 01/03/2025 3:10 PM [facility] Calcium 9.2 8.5 - 10.5 mg/dL LAB CHEMISTRY METHOD 01/03/2025 3:10 PM [facility] AST (SGOT) 13 10 - 42 unit/L LAB CHEMISTRY METHOD 01/03/2025 3:10 PM [facility] ALT (SGPT) 15 10 - 60 unit/L LAB CHEMISTRY METHOD 01/03/2025 3:10 PM [facility] Alkaline Phosphatase 86 42 - 121 unit/L LAB CHEMISTRY METHOD 01/03/2025 3:10 PM EDT [facility] Total Protein 7.1 6.0 - 8.0 g/dL LAB CHEMISTRY METHOD 01/03/2025 3:10 PM EDT [facility] Albumin 3.7 3.2 - 5.0 g/dL LAB CHEMISTRY METHOD 01/03/2025 3:10 PM EDT [facility] Total Bilirubin 1.7(H) 0.0 - 1.4 mg/dL LAB CHEMISTRY METHOD 01/03/2025 3:10 PM EDT [facility] Blood Venous blood specimen / Unknown Venipuncture / Unknown 01/03/2025 12:43 PM EDT 01/03/2025 1:31 PM EDT Butch ARMAS LAB BLOOD ORDERABLES Final Res ult [facility] [address] [place] [address], [place] [phone] * External Colonoscopy Report (12/02/2024 10:01 AM EDT) Anatomical Region Laterality Modality Endoscopy Historical Provider GI~PROCEDURE ORDERABLES F inal Result from Last 3 Months or Most Recently Relevant to Health Maintenance Insurance [employer] Care Teams Welding Machine Operator Electron Beam Relationship Specialty Start Date End Date Butch Bo PA [address] [place] [address] PCP - General Primary Care 10/10/24
--- OUTSIDE RECORDS SUMMARY | 2025-05-08 15:22 | XMS_ITS | Encounter Summary ---
Author Organization [facility] Address [address] [place] [address] Care Team Providers Care Roving Technician Name Role Phone Butch Bo Primary Care Provider [phone] Reason for Visit * Reason Onset Date Comments Med Refill 05/05/2025 Encounter Details Date Type Department Care Team (Late st Contact Info) Description 05/05/2025 Telephone [facility] - [facility] [address] [facility] [address] [place] [phone] Delon Wasserman MD 300 [facility] [address] [place] [address] Social History Tobacco Use Types Packs/Day Years [...] as of this encounter Progress Notes * Ricardo Landrum - 05/05/2025 4:23 PM EDT Refill request for losartan for a 90 day supply and please send to [facility]. documented in this encounter Plan of Treatment Upcoming Encounters Date Type Department Care Team (Late st Contact Info) Description 05/31/2025 8:10 AM EDT Office Visit [facility] [address] [facility] [address] [place] [phone] Linsey Castro, ELIS 300 [facility] [address] [place] [address] 08/04/2025 10:20 AM EST Office Visit Gastroenterology - [address] [facility] [address] [place] [address] Natalie Le MD 299 [facility] [address] [place] [address] 01/18/2026 11:00 AM EDT Ancillary Procedure [facility] [address] [facility] [address] [place] [phone] documented as of this encounter Visit Diagnoses Not on filedocumented in this encounter Care Teams Roving Technician Relationship Specialty Start Date End Date Butch Bo PA 299 [facility] [address] [place] [address] PCP - General Primary Care 10/10/24 documented as of this encounter
== END 2025-05-08 14:37 | disposition home or self-care (01) ==
LOC: HO.HSM 14:00
PROVIDERS: PCP Internal Medicine; Visit Provider Psychiatry & Neurology Neurology
DX: F41.9 Anxiety disorder, unspecified (principal); G43.109 Migraine with aura, not intractable, without status migrainosus; G40.909 Epilepsy, unspecified, not intractable, without status epilepticus; I67.89 Other cerebrovascular disease
CPT/HCPCS: 99214

== ENCOUNTER 2025-05-16 14:27 | Outpatient (REF) | payer OTHER, SELFPAY ==
--- OUTSIDE RECORDS SUMMARY | 2024-07-01 10:56 | XMS_ITS | Encounter Summary ---
Author Organization [facility] Address [address] [place] [address] Care Team Providers Care Waste Management Specialist Name Role Phone Gabe Shahid MD Primary Care Provider [phone] Encounter Details Date Type Department Care Team (Late st Contact Info) Description 07/01/2024 10:56 AM EDT Hospital Encounter TH HISTORIC ENCOUNTERS EASTERN CONVERSION ONLY Gabe Shahid MD [address] [facility] [address] [place] [phone] Social History Tobacco Use Types Packs/Day Years Used Date Smoking Tobacco: Never Smokeless Tobacco: Never Alcohol Use Standard Drinks/Week Comments Not Currently 0 (1 standard drink = 0.6 oz pur e alcohol) Comments Unknown Sex and Gender Information Value Date Recorded Sex Assigned at Not on file Legal Sex Female 2:02 AM EST Gender Identity Not on file Sexual Orientation Not on file documented as of this encounter Plan of Treatment Upcoming Encounters Date Type Department Care Team (Late st Contact Info) Description 05/31/2025 8:10 AM EDT Office Visit [facility] - [address] [facility] [address] [place] [phone] Linsey Castro, ELIS [address] [place] [phone] 08/04/2025 10:20 AM EST Office Visit Gastroenterology - [address] [facility] [address] [place] [phone] Natalie Le MD [address] [place] [address] 01/18/2026 11:00 AM EDT Ancillary Procedure [facility] [address] [facility] [address] [place] [address] documented as of this encounter Procedures Procedure Name Priority Date/Time Associated Diagnosis Comments CR SPINE CERVICAL MIN 4 VIEWS Routine 07/04/2024 1:32 PM EDT documented in this encounter Results * CR SPINE CERVICAL MIN 4 VIEWS (07/04/2024 1:32 PM EDT) Anatomical Region Laterality Modality Radiographic Yin ging 07/01/2024 11:0 1 AM EDT Narrative 07/04/2024 1:32 PM EDT [facility] Diagnostic Imaging Department [address] [place] [address] Patient: NGOZI NELSON Bin /Age/Sex: 1945 - 79 - F Unit#: [id number] Location/Status: SPDIGEN/REG CLI Mnemonic/Ordering Site: SPINCER/SPDI Ordering Physician: GABE SHAHID MD CR Spine Cervical Min 4 Views - 07/01/24 - 7 Report Status:Signed EXAMINATION: Cervical spine 4 views. CLINICAL INDICATION: Neck pain x3 months. COMPARISON: None. FINDINGS: Vertebral bodies are normal in size, shape and alignment. There is maintained cervical lordosis. The vertebral heights and alignment is appears normal. There is posterior spinous fusion C2 and C3 vertebra. There is loss of C6-7 described. Rest of disc heights are maintained normal. On oblique views there is mild bilateral narrowing of C5-6 and right C4-5 new foraminal narrowing. There is mild ventral spondylosis at this C6-7 disc level. No acute fracture, lytic or sclerotic process seen. The soft tissues are normal. The prevertebral soft tissues are normal. IMPRESSION: Degenerative disc changes C6/7 disc level with ventral spondylosis. There is bilateral C6-7 and mild right C5-C6 neural foraminal narrowing from uncovertebral hypertrophic changes. No visible acute fracture or dislocation seen. [id number] Dictating Physician: EULOGIO ALICIA Electronically Signed by: EULOGIO ALICIA Dic Date/Time: 07/04/24 1328 Sign date/Time: 07/04/24 1332 Procedure Note Eulogio Alicia MD - 07/12/2024 [facility] Diagnostic Imaging Department [address] [place] [address] Patient: NGOZI NELSON D.O.B./Age/Sex: 1945 - 79 - F Unit#: [id number] Location/Status: SPDIGEN/REG CLI Mnemonic/Ordering Site: SPINCER/SPDI Ordering Physician: GABE SHAHID MD CR Spine Cervical Min 4 Views - 07/01/24 - 1127 Report Status:Signed EXAMINATION: Cervical spine 4 views. CLINICAL INDICATION: Neck pain x3 months. COMPARISON: None. FINDINGS: Vertebral bodies are normal in size, shape and alignment. There ismaintained cervical lordosis. The vertebral heights and alignment is appears normal.There is posterior spinous fusion C2 and C3 vertebra. There is loss of C6-7described. Rest of disc heights are maintained normal. On oblique views there ismild bilateral narrowing of C5-6 and right C4-5 new foraminal narrowing. Thereis mild ventral spondylosis at this C6-7 disc level. No acute fracture, lyticor sclerotic process seen. The soft tissues are normal. The prevertebralsoft tissues are normal. IMPRESSION: Degenerative disc changes C6/7 disc level with ventralspondylosis. There is bilateral C6-7 and mild right C5-C6 neural foraminal narrowingfrom uncovertebral hypertrophic changes. No visible acute fracture or dislocation seen. [id number] Dictating Physician: EULOGIO ALICIA Electronically Signed by: EULOGIO ALICIA Dic Date/Time: 07/04/24 1328 Sign date/Time: 07/04/24 1332 Gabe Shahid MD IMG XR PROCEDURES Final Result documented in this encounter Visit Diagnoses Not on filedocumented in this encounter Additional Health Concerns Infection Onset Date Last Indicated Resolved Time C. difficile Rule-Out 01/06/2025 01/06/20252024 2:14 PM EDT Gastrointestinal Rule-Out 01/06/2025 01/06/2025 3:45 PM EDT documented as of this encounter Care Teams Waste Management Specialist Relationship Specialty Start Date End Date Gabe Shahid MD [address] [facility] [address] [place] [phone] PCP - General 10/07/12 10/09/24 documented as of this encounter
--- OUTSIDE RECORDS SUMMARY | 2025-05-16 09:20 | XMS_ITS | Encounter Summary ---
Author Organization [facility] Address [address] [place] [address] Care Team Providers Care Warehouse Specialist Name Role Phone Butch Bo Primary Care Provider [phone] Encounter Details Date Type Department Care Team (Late st Contact Info) Description 05/16/2025 9:20 AM EDT Ancillary Procedure [facility] - [facility] [address] 300 [facility] 154 [place] [address] Arrived Social History Tobacco Use Types Packs/Day Years [...] Description 05/31/2025 8:10 AM EDT Office Visit [facility] - [facility] [address] [facility] 154 [place] [address] Linsey Castro NP [address] [place] [phone] 08/04/2025 10:20 AM EST Office Visit Gastroenterology - [address] [place] [phone] Natalie Le MD [address] [place] [phone] 01/18/2026 11:00 AM EDT Ancillary Procedure [facility] - [address] [place] [phone] documented as of this encounter Procedures Procedure Name Priority Date/Time Associated Diagnosis Comments CARDIAC DEVICE CHECK- REMOTE- MURJ Routine 05/16/2025 9:19 AM EDT documented in this encounter Results * Cardiac device check - Remote- MURJ (05/16/2025 9:19 AM EDT) Date Time Interrogation Session [id number] CV DEVICE CHECK Type Interrogation Session Remote CV DEVICE CHECK Implantable Pulse Generator Out Of School Hours Care Worker BIO CV DEVICE CHECK Implantable Pulse Generator Type IPG CV DEVICE CHECK Implantable Pulse Generator Model Eluna 8 DR-T CV DEVICE CHECK Implantable Pulse Generator Serial Number [id number] CV DEVICE CHECK Implantable Pulse Generator Implant Date [id number] CV DEVICE CHECK Battery Remaining Percentage 35.00 CV DEVICE CHECK Battery Status Middle of Service CV DEVICE CHECK Wesley Statistic RA Percent Paced 59.00 CV DEVICE CHECK Wesley Statistic RV Percent Paced 8.00 CV DEVICE CHECK Atrial Tachy Statistic AT/AF Reading Percent 0.00 CV DEVICE CHECK Lead Channel Sensing Intrinsic Amplitude 1.100 CV DEVICE CHECK Lead Channel Setting Sensing Sensitivity 0.50 CV DEVICE CHECK Lead Channel Impedance Value 429 CV DEVICE CHECK Lead Channel Pacing Threshold Amplitude 0.900 CV DEVICE CHECK Lead Channel Pacing Threshold Pulse Width 0.4 CV DEVICE CHECK Lead Channel RA Pacing Threshold Date 2025-05-12 CV DEVICE CHECK Lead Channel Setting Pacing Amplitude 1.900 CV DEVICE CHECK Lead Channel Setting Pacing Pulse Width 0.4 CV DEVICE CHECK Lead Channel Sensing Intrinsic Amplitude 1.700 CV DEVICE CHECK Lead Channel Impedance Value 351 CV DEVICE CHECK Lead Channel RV Pacing Threshold Date 2025-05-12 CV DEVICE CHECK Lead Channel Setting Pacing [...] Anatomical Region Laterality Modality Device Interroga tion 05/12/2025 1:53 AM EDT Impressions 05/16/2025 9:17 AM EDT Heart Failure Diagnostic: Elevated * Heart failure diagnostics assessed through the device * Status: Elevated * Thoracic Impedance is well above typical range * Patient discharged from [facility] about 2 weeks ago after MRI revealed possible stroke, med changes noted in chart * Message sent to triage to assess patient. Narrative Procedure Note Apurva Muhammad PA - 05/16/2025 IMPRESSION: Heart Failure Diagnostic: Elevated * Heart failure diagnostics assessed through the device * Status: Elevated * Thoracic Impedance is well above typical range * Patient discharged from [facility] about 2 weeks ago after MRI revealedpossible stroke, med changes noted in chart * Message sent to triage to assess patient. us Apurva ARMAS CV IMPLANTABLE CARDIAC DEVICE DC OCEDURES Final Result documented in this encounter Visit Diagnoses Not on filedocumented in this encounter Care Teams Warehouse Specialist Relationship Specialty Start Date End Date Butch Bo PA [address] [place] [address] PCP - General Primary Care 10/10/24 documented as of this encounter
--- OUTSIDE RECORDS SUMMARY | 2025-05-16 15:40 | XMS_ITS | Encounter Summary ---
Author Organization [facility] Address [address] [place] [address] Care Team Providers Care Nutritional Health Coach Name Role Phone Butch Bo Primary Care Provider [phone] Reason for Visit * Reason Onset Date Comments Appointment 04/24/2025 Encounter Details Date Type Department Care Team (Late st Contact Info) Description 04/24/2025 Telephone [facility] [address] [place] [address] Delon Wasserman MD [address] [place] [address] [address] [place] [address] Social History Tobacco Use Types Packs/Day Years [...] Description 05/31/2025 8:10 AM EDT Office Visit [facility] [address] 300 [facility] 154 [place] [address] Linsey Castro FELLER MACHINE OPERATOR 300 [facility] 154 [place] [address] 08/04/2025 10:20 AM EST Office Visit Gastroenterology - [address] [facility] 419 [place] [address] Natalie Le MD [address] [place] [address] 01/18/2026 11:00 AM EDT Ancillary Procedure [facility] - [facility] [address] 300 [facility] 154 [place] [phone] documented as of this encounter Visit Diagnoses Not on filedocumented in this encounter Care Teams Nutritional Health Coach Relationship Specialty Start Date End Date Butch Bo PA 299 [facility] 322 [place] [address] PCP - General Primary Care 10/10/24 documented as of this encounter
--- OUTSIDE RECORDS SUMMARY | 2025-05-16 15:40 | XMS_ITS | Encounter Summary ---
Author Organization [facility] Address [address] [place] [address] Care Team Providers Care Awning Hanger Helper Name Role Phone Butch Bo Primary Care Provider [phone] Encounter Details Date Type Department Care Team (Late Contact Info) Description 07/20/2024 Nurse Triage [facility] - [facility] 154 300 [facility] 154 [place] [address] Linsey Castro NP 300 [facility] 154 [place] [address] Social History Tobacco Use Types [...] Description 05/31/2025 8:10 AM EDT Office Visit [facility] - [facility] 154 300 [facility] 154 [place] [address] Linsey Castro NP 300 [facility] 154 [place] [address] 08/04/2025 10:20 AM EST Office Visit Gastroenterology - 299 [facility] 299 [facility] 419 [place] [address] Natalie Le MD 230 [place] [address] 01/18/2026 11:00 AM EDT Ancillary Procedure [facility] - [facility] 154 300 [facility] 154 [place] [address] documented as of this encounter Visit Diagnoses Not on filedocumented in this encounter Additional Health Concerns Infection Onset Date Last Indicated Resolved Time C. difficile Rule-Out 01/06/2025 01/06/20252024 2:14 PM EDT Gastrointestinal Rule-Out 01/06/2025 01/06/2025 3:45 PM EDT documented as of this encounter Care Teams Awning Hanger Helper Relationship Specialty Start Date End Date Butch Bo PA 299 [facility] 322 [place] [address] PCP - General Primary Care 10/10/24 documented as of this encounter
--- OUTSIDE RECORDS SUMMARY | 2025-05-16 15:40 | XMS_ITS | Encounter Summary ---
Author Organization [facility] Address [address] [place] [address] Care Team Providers Care Tree Fruit And Nut Farming Supervisor Name Role Phone Butch Bo Primary Care Provider [phone] Encounter Details Date Type Department Care Team (Late st Contact Info) Description 05/12/2025 Telephone [facility] - [facility] [address] [facility] [address] [place] [address] Delia Ruff MA Social History Tobacco Use Types Packs/Day Years [...] as of this encounter Progress Notes * Estrella Cain RN - 05/16/2025 8:47 AM EDT Please review MY CHART message * Bel Castellanos RN - 05/12/2025 3:56 PM EDT Attempted to contact pt. Call does not connect/carrier issue. Will reattempt. * Delia Ruff MA - 05/12/2025 7:26 AM EDT Heart failure diagnostics available in this device are suggestive of volume overload. Please phone patient to assess for symptoms of heart failure exacerbation: Weight gain, orthopnea, PND, increasedexertional dyspnea, recent clinical events, dietary indiscretion. Please convey this information to the primary cardiology team or go to as appropriate. Of note, patient was discharged from [facility] about 2 weeks ago with med changes after MRI revealed possible stroke. documented in this encounter Plan of Treatment Upcoming Encounters Date Type Department Care Team (Late st Contact Info) Description 05/31/2025 8:10 AM EDT Office Visit [facility] - [facility] [address] [facility] 154 [place] [address] Linsey Castro NP [address] [place] [address] 08/04/2025 10:20 AM EST Office Visit Gastroenterology - [address] [facility] [address] [place] [address] Natalie Le MD [address] [place] [address] 01/18/2026 11:00 AM EDT Ancillary Procedure [facility] [address] [facility] 154 [place] [address] documented as of this encounter Visit Diagnoses Not on filedocumented in this encounter Discontinued Medications Medication Sig Discontinue Reason Start Date End Da te carvediloL (COREG) 12.5 mg tablet Take 1.5 tablets by mouth twice a day Dose adjustment 09/21/2024 05/16/2025 documented as of this encounter Historical Medications * This list may reflect changes made after this encounter. carvediloL (COREG) 25 mg tablet Take 1 tablet (25 mg total) by mouth 2 (two) times a day with meals. 04/28/2025 added in this encounter Care Teams Tree Fruit And Nut Farming Supervisor Relationship Specialty Start Date End Date Butch Bo PA [address] [place] [address] PCP - General Primary Care 10/10/24 documented as of this encounter
--- OUTSIDE RECORDS SUMMARY | 2025-05-16 15:40 | XMS_ITS | Encounter Summary ---
Author Organization [facility] Address [address] [place] [address] Care Team Providers Care Office Machine Repair Shop Supervisor Name Role Phone Butch Bo Primary Care Provider [phone] Encounter Details Date Type Department Care Team (Late Contact Info) Description 01/31/2025 Lab Requisition [facility] - Main Lab 299 [facility] [place] [address] Butch Bo PA 299 [facility] 322 [place], [place] [phone] Essential (primary) hypertension; Cardiac arrhythmia, unspecified; Chronic fatigue, unspecified; Other terminal gauger supervisor (current) drug therapy Social History Tobacco Use [...] Description 05/31/2025 8:10 AM EDT Office Visit [facility] - [address] [facility] [address] [place] [address] Linsey Castro, IRRIGATOR [address] [place] [address] 08/04/2025 10:20 AM EST Office Visit Gastroenterology - [address] [place] [address] Natalie Le MD 230 [place] [address] 01/18/2026 11:00 AM EDT Ancillary Procedure [facility] - [address] [place] [address] documented as of this encounter Procedures Procedure Name Priority Date/Time Associated Diagnosis Comments URINALYSIS WITH REFLEX MICROSCOPIC AND CULTURE Routine 01/31/2025 12:00 AM EDT Essential (primary) hypertension Cardiac arrhythmia, unspecified Chronic fatigue, unspecified Other terminal gauger supervisor (current) drug therapy ALVAREZ URINE CULTURE TUBE Routine 01/31/2025 12:00 AM EDT Essential (primary) hypertension Cardiac arrhythmia, unspecified Chronic fatigue, unspecified Other senior living (current) drug therapy TIGER TOP URINE TUBE Routine 01/31/2025 12:00 AM EDT Essential (primary) hypertension Cardiac arrhythmia, unspecified Chronic fatigue, unspecified Other terminal gauger supervisor (current) drug therapy YELLOW URINE NO ADDITIVE Routine 01/31/2025 12:00 AM EDT Essential (primary) hypertension Cardiac arrhythmia, unspecified Chronic fatigue, unspecified Other terminal gauger supervisor (current) drug therapy URINALYSIS WITH REFLEX MICROSCOPIC AND CULTURE Routine 01/31/2025 12:00 AM EDT Essential (primary) hypertension Cardiac arrhythmia, unspecified Chronic fatigue, unspecified Other terminal gauger supervisor (current) drug therapy CULTURE URINE Routine 01/31/2025 12:00 AM EDT Essential (primary) hypertension Cardiac arrhythmia, unspecified Chronic fatigue, unspecified Other terminal gauger supervisor (current) drug therapy documented in this encounter Results * Culture urine (01/31/2025 12:00 AM EDT) Culture, Urine 10,000-49,000 CFU/mL Mixed urogenital mary kate, no uropathogens present. Suggest repeat specimen if clinically indicated. 02/02/2025 11:36 AM EDT [facility] Urine Urine specimen obtained by clean catch procedure / Unknown 01/31/2025 01/31/2025 10:12 PM EDT Butch ARMAS LAB MICROBIOLOGY - GENERAL ORD ERABLES Final Result Performing Organization Address [facility]/ZIP Co de Phone Number [facility] [address] [place] [address], [place] [phone] * Yellow urine no additive (01/31/2025 12:00 AM EDT) Extra Tube Hold for add-ons. 01/31/2025 8:01 PM EDT [facility] Comment:Auto resulted. Urine Urine specimen obtained by clean catch procedure / Unknown 01/31/2025 01/31/2025 6:26 PM EDT Butch ARMAS LAB URINE ORDERABLES Final Res ult Performing Organization Address City/[facility]/ZIP Co de Phone Number [facility] [address] [place] [address], [place] [phone] * [place] top urine tube (01/31/2025 12:00 AM EDT) Extra Tube Hold for add-ons. 01/31/2025 8:01 PM EDT [facility] Comment:Auto resulted. Urine Urine specimen obtained by clean catch procedure / Unknown 01/31/2025 01/31/2025 6:13 PM EDT Butch ARMAS LAB URINE ORDERABLES Final Res ult [facility] [address] [place] [address], [place] [phone] * Alvarez urine culture tube (01/31/2025 12:00 AM EDT) [facility] Extra Tube Hold for add-ons. 01/31/2025 8:01 PM EDT [facility] Comment:Auto resulted. Urine Urine specimen obtained by clean catch procedure / Unknown 01/31/2025 01/31/2025 6:13 PM EDT Butch ARMAS LAB URINE ORDERABLES Final Res ult Performing Organization Address [facility]/State/ZIP Co de Phone Number [facility] [address] [place] [address], [place] [phone] * (ABNORMAL) Urinalysis with reflex microscopic and culture (01/31/2025 12:00 AM EDT) [facility] Specific [place] Urine 1.007 1.003 - 1.030 LAB URINALYSIS - AUTOMATED METHOD 01/31/2025 10:12 PM [facility] pH, Urine 6.0 5.0 - 8.0 pH LAB URINALYSIS - AUTOMATED METHOD 01/31/2025 10:12 PM [facility] Leukocytes, Urine Large(A) Negative LAB URINALYSIS - AUTOMATED METHOD 01/31/2025 10:12 PM [facility] Nitrite, Urine Negative Negative LAB URINALYSIS - AUTOMATED METHOD 01/31/2025 10:12 PM [facility] Protein, Urine Negative <=Trace mg/dL LAB URINALYSIS - AUTOMATED METHOD 01/31/2025 10:12 PM [facility] Glucose, Urine Negative Negative mg/dL LAB URINALYSIS - AUTOMATED METHOD 01/31/2025 10:12 PM [facility] Ketones, Urine Negative Negative mg/dL LAB URINALYSIS - AUTOMATED METHOD 01/31/2025 10:12 PM [facility] Urobilinogen, Urine 0.2 0.2 - 1.0 mg/dL LAB URINALYSIS - AUTOMATED METHOD 01/31/2025 10:12 PM [facility] Bilirubin, Urine Negative Negative LAB URINALYSIS - AUTOMATED METHOD 01/31/2025 10:12 PM [facility] Blood, Urine Negative Negative LAB URINALYSIS - AUTOMATED METHOD 01/31/2025 10:12 PM [facility] RBC, Urine 4.0 0 - 4 /HPF LAB URINALYSIS - AUTOMATED METHOD 01/31/2025 10:12 PM [facility] WBC, Urine 75.3(H) 0 - 4 /HPF LAB URINALYSIS - AUTOMATED METHOD 01/31/2025 10:12 PM [facility] Squamous Epithelial, Urine 67(H) 0 - 60 /LPF LAB URINALYSIS - AUTOMATED METHOD 01/31/2025 10:12 PM [facility] Bacteria, Urine Few(A) Negative /HPF LAB URINALYSIS - AUTOMATED METHOD 01/31/2025 10:12 PM [facility] Hyaline Casts, Urine 2.0 0 - 3 /LPF LAB URINALYSIS - AUTOMATED METHOD 01/31/2025 10:12 PM [facility] Urine Urine specimen obtained by clean catch procedure / Unknown 01/31/2025 01/31/2025 6:13 PM EDT us Butch ARMAS LAB URINE ORDERABLES Final Res ult [facility] [address] [place] [address], documented in this encounter Visit Diagnoses Diagnosis Essential (primary) hypertension Unspecified essential hypertension Cardiac arrhythmia, unspecified Chronic fatigue, unspecified Other senior living (current) drug therapy Encounter for adjustment or management of cardiac device documented in this encounter Care Teams Office Machine Repair Shop Supervisor Relationship Specialty Start Date End Date Butch Bo PA [address] [place] [address] PCP - General Primary Care 10/10/24 documented as of this encounter
--- OUTSIDE RECORDS SUMMARY | 2025-05-16 15:40 | XMS_ITS | Clinical Summary ---
Author Organization [facility] Address [address] [place] [address] Care Team Providers Care Spline Rolling Machine Job Setter Name Role Phone Danilo Shahid MD Primary Care Provider [phone] Allergies Active Allergy Reactions Criticality Noted Date [...] Status Comments Brother Alive Father (Age 66) DC at age 44 Mother (Age 89) No [...] age to complete this topic Care Teams Spline Rolling Machine Job Setter Relationship Specialty Start Date End Date Danilo Shahid MD [address] [place] [address] PCP - General Internal Medicine 10/19/20
--- OUTSIDE RECORDS SUMMARY | 2025-05-16 15:40 | XMS_ITS | Clinical Summary ---
Author Organization [address] [place] [address] Address [address] [place] [address] Phone Care Team Providers Care Erp Implementation Consultant Name Role Phone Butch Bo Primary Care Provider [phone] Allergies Active Allergy Reactions Criticality Noted Date [...] DAY 90 tablet 3 09/20/19 25 Active syringe with needle (BD Luer-Anabella [...] 1 (one) time each day. 90 each 1 05/09/20 25 Active carvediloL (COREG) 25 mg tablet Take 1 tablet (25 mg total) by mouth 2 (two) times a day with meals. 04/28/20 25 Active losartan (COZAAR) 100 mg tablet Take 1 tablet (100 mg total) by mouth 1 (one) time each day. 025 Discontinu ed(Alterna te therapy) carvediloL (COREG) 12.5 mg tablet Take 1.5 tablets by mouth twice a day 270 tablet 3 09/21/19 25 025 Discontinu ed(Dose adjustment ) cyanocobalamin (VITAMIN B-12) 1,000 mcg/mL injectionIndica tions:Low [...] 3 04/27/20 25 025 Discontinu ed(Reorder ) losartan-hydroC HLOROthiazide (Hyzaar) 100-25 mg per tablet Take 1 tablet by mouth 1 (one) time each day. 30 each 04/28/20 25 025 Discontinu ed(Reorder ) Active Problems [...] atrial appendage closure device. She has a [id number] score of 3 documented atrial fibrillation and [...] of near syncope I am going to robot programmer her to a dual-chamber mode with a very long AV delay to minimize pacing. She is okay with this trial. Her NC interval is quite normal and I doubt that she is having heart block but certainly possible if she is having vagal episodes. 2 years of battery longevity. I did lower the lower rate to 60 bpm Assessment & Plan (07/19/2024 8:30 AM EST): Normally functioning pacemaker, pacing 66%. Adequate HR variability. 40% battery life Encounters Date Type Department Care Team Description 05/16/2025 9:20 AM EDT Ancillary Procedure [facility] - [address] [place] [address] Arrived 05/12/2025 Telephone [facility] - [address] [place] [address] Delia Ruff MA 05/05/2025 Telephone [facility] - [address] [place] [address] Delon Wasserman MD 04/27/2025 Telephone [facility] - [address] [place] [address] Delon Wasserman MD 04/24/2025 Telephone [facility] - [address] [place] [address] Delon Wasserman MD 03/28/2025 9:35 AM EDT Ancillary Procedure [facility] - [address] [place] [address] 03/07/2025 11:10 AM EDT Office Visit [facility] - [address] [place] [address] Linsey Castro NP Paroxysmal atrial fibrillation ([facility] V24, [facility] V28) (Primary Dx) from Last 3 Months Medical History Medical History Date Comments Sick sinus syndrome (CMS/HCC V24, CMS/HCC V28) Benign essential hypertension Palpitations Paroxysmal atrial fibrillation ([facility] V24, CMS /[facility] V28) PVC (premature ventricular contraction) Crohn disease (CMS/[facility] V24, CMS/HCC V28) Social History Tobacco Use [...] Description 05/31/2025 8:10 AM EDT Office Visit [facility] - [address] [place] [address] Linsey Castro NP [address] [place] [address] 08/04/2025 10:20 AM EST Office Visit Gastroenterology - [address] [place] [phone] Natalie Le MD [address] [place] [address] 01/18/2026 11:00 AM EDT Ancillary Procedure [facility] - [address] [place] [address] Health Maintenance Due Date Last Done Comments Pneumococcal Vaccine: 50+ Years (1 of 1 - PCV) 1997 Falls Risk Assessment 08/23/2022 Hepatitis C Screening 08/23/2022 Osteoporosis Screening (Bone Density Screening) 08/23/2022 Social Influencers of Health Screening 08/23/2022 Depression Screening 09/14/2024 COVID-19 Vaccine ( season) 2025 06/23/2024, 08/18/2023, 10/22/2022, Additional history exists Influenza [...] this topic Medical Devices Implanted Type Area Flake Miller Helper Device Identifier Shelf Expiration Date Model / Serial / Lot SaloniKateDuy Soto [id number] Implanted:12/2014 (Quantity not on file) Cardiac Pacemaker [employer] CARLOS EDUARDO SOTO / [id number] / Procedures Procedure Name Priority Date/Time Associated Diagnosis Comments CARDIAC DEVICE CHECK- REMOTE- MURJ Routine 05/16/2025 9:19 AM EDT EXTERNAL CLINICAL LAB Routine 04/24/2025 3:34 PM [...] Recently Relevant to Health Maintenance Results * Cardiac device check - Remote- MURJ (05/16/2025 9:19 AM EDT) Only the most recent of2 resultswithin the time period is included. Date Time Interrogation Session [id number] CV DEVICE CHECK Type Interrogation Session Remote CV DEVICE CHECK Implantable Pulse Generator Flake Miller Helper BIO CV DEVICE CHECK Implantable Pulse Generator Type IPG CV DEVICE CHECK Implantable Pulse Generator Model Eluna 8 DR-T CV DEVICE CHECK Implantable Pulse Generator Serial Number [id number] CV DEVICE CHECK Implantable Pulse Generator Implant Date [id number] CV DEVICE CHECK Battery Remaining Percentage 35.00 CV DEVICE CHECK Battery Status Middle of Service CV DEVICE CHECK Wesley Statistic RA Percent Paced 59.00 CV DEVICE CHECK Wesley Statistic RV Percent Paced 8.00 CV DEVICE CHECK Atrial Tachy Statistic AT/AF [place] Percent 0.00 CV DEVICE CHECK Lead Channel [...] above typical range * Patient discharged from [facility] about 2 weeks ago after MRI revealed possible stroke, med changes noted in chart * Message sent to triage to assess patient. Narrative Procedure Note Apurva Muhammad PA - 05/16/2025 IMPRESSION: Heart Failure Diagnostic: Elevated * Heart failure diagnostics assessed through the device * Status: Elevated * Thoracic Impedance is well above typical range * Patient discharged from [facility] about 2 weeks ago after MRI revealedpossible stroke, med changes noted in chart * Message sent to triage to assess patient. Apurva ARMAS CV IMPLANTABLE CARDIAC DEVICE NC OCEDURES Final Result * External clinical lab (04/24/2025 3:34 PM EDT) Historical Provider LAB BLOOD ORDERABLES Shelia l Result * (ABNORMAL) Lipid panel with reflex to direct LDL (01/03/2025 12:43 PM EDT) Cholesterol 224(H) 0 - 200 mg/dL LAB CHEMISTRY METHOD 01/03/2025 3:12 PM EDT [facility] Triglycerides 72 0 - 150 mg/dL LAB CHEMISTRY METHOD 01/03/2025 3:12 PM EDT [facility] HDL 87 >=40 mg/dL LAB CHEMISTRY METHOD 01/03/2025 3:12 PM EDT [facility] LDL Calculated 123(H) 0 - 100 mg/dL LAB CHEMISTRY METHOD 01/03/2025 3:12 PM EDT [facility] VLDL Cholesterol Derick 14.4 mg/dL LAB CHEMISTRY METHOD 01/03/2025 3:12 PM EDT [facility] Non HDL Chol. (LDL+VLDL) 137 <145 mg/dL LAB CHEMISTRY METHOD 01/03/2025 3:12 PM EDT [facility] Chol/HDL Ratio 2.6 0.0 - 4.4 LAB CHEMISTRY METHOD 01/03/2025 3:12 PM [facility] Blood Venous blood specimen / Unknown Venipuncture / Unknown 01/03/2025 12:43 PM EDT 01/03/2025 1:31 PM EDT us Butch RAMAS LAB BLOOD ORDERABLES Final Res ult [facility] [address] [place] [address], * (ABNORMAL) Comprehensive metabolic panel (01/03/2025 12:43 PM EDT) Sodium 134 133 - 145 mmol/L LAB CHEMISTRY METHOD 01/03/2025 3:10 PM [facility] Potassium 4.0 3.5 - 5.5 mmol/L LAB CHEMISTRY METHOD 01/03/2025 3:10 PM [facility] Chloride 101 96 - 110 mmol/L LAB CHEMISTRY METHOD 01/03/2025 3:10 PM [facility] CO2 23 21 - 32 mmol/L LAB CHEMISTRY METHOD 01/03/2025 3:10 PM [facility] Anion Gap 10 3 - 11 LAB CHEMISTRY METHOD 01/03/2025 3:10 PM [facility] Glucose 103(H) 70 - 100 mg/dL LAB CHEMISTRY METHOD 01/03/2025 3:10 PM [facility] BUN 5 5 - 25 mg/dL LAB CHEMISTRY METHOD 01/03/2025 3:10 PM [facility] Creatinine 0.54 0.50 - 1.10 mg/dL LAB CHEMISTRY METHOD 01/03/2025 3:10 PM [facility] eGFR 95 >=60 mL/min/1. 73m2 LAB CHEMISTRY METHOD 01/03/2025 3:10 PM EDT [facility] Comment:Calculation based on the Chronic Kidney Disease Epidemiology Collaboration (CKD-EPI) equation refit without adjustment for race. BUN/Creatinine Ratio 9.3 LAB CHEMISTRY METHOD 01/03/2025 3:10 PM EDT [facility] Calcium 9.2 8.5 - 10.5 mg/dL LAB CHEMISTRY METHOD 01/03/2025 3:10 PM EDT [facility] AST (SGOT) 13 10 - 42 unit/L LAB CHEMISTRY METHOD 01/03/2025 3:10 PM [facility] ALT (SGPT) 15 10 - 60 unit/L LAB CHEMISTRY METHOD 01/03/2025 3:10 PM [facility] Alkaline Phosphatase 86 42 - 121 unit/L LAB CHEMISTRY METHOD 01/03/2025 3:10 PM [facility] Total Protein 7.1 6.0 - 8.0 g/dL LAB CHEMISTRY METHOD 01/03/2025 3:10 PM [facility] Albumin 3.7 3.2 - 5.0 g/dL LAB CHEMISTRY METHOD 01/03/2025 3:10 PM [facility] Total Bilirubin 1.7(H) 0.0 - 1.4 mg/dL LAB CHEMISTRY METHOD 01/03/2025 3:10 PM T [facility] Blood Venous blood specimen / Unknown Venipuncture / Unknown 01/03/2025 12:43 PM EDT 01/03/2025 1:31 PM EDT us Butch ARMAS LAB BLOOD ORDERABLES Final Res ult [facility] [address] [place] [address], * External Colonoscopy Report (12/02/2024 10:01 AM EDT) Anatomical Region Laterality Modality Endoscopy us Historical Provider GI~PROCEDURE ORDERABLES F inal Result from Last 3 Months or Most Recently Relevant to Health Maintenance Insurance [facility] Care Teams Erp Implementation Consultant Relationship Specialty Start Date End Date Butch Bo PA [address] [place] [id number] PCP - General Primary Care 10/10/24
--- NOTE | 2025-05-16 16:31 | EEG_ITS ---
Reason: Epilepsy Medications: escitalopram 10mg History: Multifactorial gait disorder, osteoarthritis, Cerebral microvascular disease, anxiety disorder Agricultural Engineering Teacher Comments: Photic stimulation: completed Hyperventilation: completed Behavioral state: relaxed State if consciousness: awake Skull defect: none Sedation: no Handedness: right Duration of study: 25 mins This is a 16 channel EEG with an EKG lead. Background EEG rhythm is about 10 hertz 5-200 microvolt posteriorly lower amplitude fast anteriorly. Photic stimulation does not produce any significant driving. Hyperventilation is unremarkable. Cardiac lead does not reveal any significant abnormality. No sharp wave spikes or paroxysmal tendency noted. Impression: No significant abnormality noted on this EEG. MTDD
== END 2025-05-16 14:28 | disposition home or self-care (01) ==
LOC: HO.NEURO 14:27
PROVIDERS: Visit Provider Psychiatry & Neurology Neurology
DX: G40.909 Epilepsy, unspecified, not intractable, without status epilepticus (principal)
CPT/HCPCS: 95816

== ENCOUNTER → 2025-05-16 16:31 | Outpatient (BNV) | payer OTHER, SELFPAY | PROVIDERS: Visit Provider Psychiatry & Neurology Neurology | DX: G40.909 Epilepsy, unspecified, not intractable, without status epilepticus (principal) | CPT/HCPCS: 95816 ==

== ENCOUNTER 2025-05-23 12:46 | Outpatient (AMB) | payer OTHER, SELFPAY ==
--- OUTSIDE RECORDS SUMMARY | 2024-07-01 10:56 | XMS_ITS | Encounter Summary ---
Author Organization [facility] Address [address] [place] [address] Care Team Providers Care Dietary Assistant Name Role Phone Gabe Shahid MD Primary Care Provider [phone] Encounter Details Date Type Department Care Team (Late st Contact Info) Description 07/01/2024 10:56 AM EDT Hospital Encounter TH HISTORIC ENCOUNTERS EASTERN CONVERSION ONLY Gabe Shahid MD [address] [facility] [address] [place] [phone] Social History Tobacco Use Types Packs/Day Years [...] Description 05/31/2025 8:10 AM EDT Office Visit [facility] - [address] [facility] [address] [place] [phone] Linsey Castro, ELIS [address] [place] [phone] 08/04/2025 10:20 AM EST Office Visit Gastroenterology - [address] [facility] [address] [place] [address] Natalie Le MD [address] [place] [address] 01/18/2026 11:00 AM EDT Ancillary Procedure [facility] - [facility] [address] [facility] 154 [place] [address] documented as of this encounter Procedures Procedure Name Priority Date/Time Associated Diagnosis Comments CR SPINE CERVICAL MIN 4 VIEWS Routine 07/04/2024 1:32 PM EDT documented in this encounter Results * CR SPINE CERVICAL MIN 4 VIEWS (07/04/2024 1:32 PM EDT) Anatomical Region Laterality Modality Radiographic Yin ging 07/01/2024 11:0 1 AM EDT Narrative 07/04/2024 1:32 PM EDT [facility] Diagnostic Imaging Department [address] [place] [address] Patient: MARJNGOZI /Age/Sex: 1945 - 79 - F Unit#: [id number] Location/Status: SPDIGEN/REG CLI Mnemonic/Ordering Site: SPINCER/SPDI Ordering [...] No visible acute fracture or dislocation seen. [id number] Dictating Physician: EULOGIO ALICIA Electronically Signed by: EULOGIO ALICIA Dic Date/Time: 07/04/24 1328 Sign date/Time: 07/04/24 1332 Procedure Note Eulogio Alicia MD - 07/12/2024 [facility] Diagnostic Imaging Department [address] [place] [address] Patient: NGOZI NELSON Bin SiddiqiB./Age/Sex: 1945 - 79 - F Unit#: [id number] Location/Status: SPDIGEN/REG CLI Mnemonic/Ordering Site: SPINCER/SPDI Ordering [...] No visible acute fracture or dislocation seen. [id number] Dictating Physician: EULOGIO ALICIA Electronically Signed by: [...] documented as of this encounter Care Teams Dietary Assistant Relationship Specialty Start Date End Date Gabe Shahid MD [address] [place] [address] PCP - General 10/07/12 10/09/24 documented as of this encounter
--- OUTSIDE RECORDS SUMMARY | 2025-01-03 07:00 | XMS_ITS ---
Author Organization [facility] [place] Address [address] [facility] [address] [place] [address] Care Team Providers Care Manufacturing Quality Engineer Name Role Phone Butch Bo Unavailable [phone] REASON FOR VISIT Follow-up Appt Encounters Encounter Location Date Provider Diagnosis [address] [place] [address] 01/03/2025 Butch Bo Plan Of Treatment Next Appt Details Provider Name:Gwendolyn Turner, 05/29/2025 11:15:00 AM, 299 [facility], Suite [facility], [place], [address], [phone] Progress Notes * JOHN MCMAHANDOB:1945 (80 yo F)Acc No.[id number]:01/03/2025 Progress Notes Patient: JOHN VENEGAS Provider: Saúl ARMAS :1945 A ge:79 Y S ex:Female Date:01/03/2025 Address:[address] [place], [place] [phone] Subjective: * Chief Complaints: * F ollow-up Appt * Ocular Surgical History: Objective: Vision Examination: * Electronic signature of Dk Bo PA-C on 05/23/2025 at 03:04 PM EDT Sign off status: Pending * Provider: Saúl ARMAS Date: 0 01/03/2025 Generated for Printi ng/Faxing/eTransmitting on: 0 05/23/2025 03:04 PM EDT
--- OUTSIDE RECORDS SUMMARY | 2025-01-13 07:45 | XMS_ITS ---
Author Organization [facility] Address [address] [facility] [address] [place] [address] Care Team Providers Care Checker/Stocker Name Role Phone Butch Bo Unavailable [phone] REASON FOR VISIT Follow-up Appt Encounters Encounter Location Date Provider Diagnosis [address] [place] [address] 01/13/2025 Butch Bo Plan Of Treatment Next Appt Details Provider Name:Gwendolyn Turner, 05/29/2025 11:15:00 AM, 299 [facility], Suite [facility], [place], [address], [phone] Progress Notes * JOHN MCMAHANDOB:1945 (80 yo F)Acc No.[id number]:01/13/2025 Progress Notes Patient: JOHN VENEGAS Provider: Saúl ARMAS :1945 A ge:79 Y S ex:Female Date:01/13/2025 Address:[address] [place], [place] [phone] Subjective: * Chief Complaints: * F ollow-up Appt * Ocular Surgical History: Objective: Vision Examination: * Electronic signature of Dk Bo PA-C on 05/23/2025 at 03:04 PM EDT Sign off status: Pending * Provider: Saúl ARMAS Date: 0 01/13/2025 Generated for Printi ng/Faxing/eTransmitting on: 0 05/23/2025 03:04 PM EDT
--- OUTSIDE RECORDS SUMMARY | 2025-01-20 07:00 | XMS_ITS ---
Author Organization [facility] Address [address] [facility] [address] [place] [address] Care Team Providers Care Cad Librarian Name Role Phone Butch Bo Unavailable [phone] REASON FOR VISIT Follow-up Appt Encounters Encounter Location Date Provider Diagnosis [address] [place] [address] 01/20/2025 Butch Bo Plan Of Treatment Next Appt Details Provider Name:Gwendolyn Turner, 05/29/2025 11:15:00 AM, 299 [facility], Suite [facility], [place], [address], [phone] Progress Notes * JOHN MCMAHANDOB:1945 (80 yo F)Acc No.[id number]:01/20/2025 Progress Notes Patient: JOHN VENEGAS Provider: Saúl ARMAS :1945 A ge:79 Y S ex:Female Date:01/20/2025 Address:[address] [place], [place] [phone] Subjective: * Chief Complaints: * F ollow-up Appt * Ocular Surgical History: Objective: Vision Examination: * Electronic signature of Dk Bo PA-C on 05/23/2025 at 03:05 PM EDT Sign off status: Pending * Provider: Saúl ARMAS Date: 0 01/20/2025 Generated for Printi ng/Faxing/eTransmitting on: 0 05/23/2025 03:05 PM EDT
--- OUTSIDE RECORDS SUMMARY | 2025-01-31 12:00 | XMS_ITS ---
Author Organization [facility] Address [address] [facility] [address] [place] [address] Care Team Providers Care Animation Producer Name Role Phone Butch Bo Unavailable [phone] REASON FOR VISIT Follow-up Appt Encounters Encounter Location Date Provider Diagnosis [address] [place] [address] 01/31/2025 Butch Bo Plan Of Treatment Next Appt Details Provider Name:Gwendolyn Turner, 05/29/2025 11:15:00 AM, 299 [facility], Suite [facility], [place], [address], [phone] Progress Notes * JOHN MCMAHANDOB:1945 (80 yo F)Acc No.[id number]:01/31/2025 Progress Notes Patient: JOHN VENEGAS Provider: Saúl ARMAS :1945 A ge:79 Y S ex:Female Date:01/31/2025 Address:[address] [place], [place] [address] Subjective: * Chief Complaints: * F ollow-up Appt * Ocular Surgical History: Objective: Vision Examination: * Electronic signature of Dk Bo PA-C on 05/23/2025 at 03:05 PM EDT Sign off status: Pending * Provider: Saúl ARMAS Date: 01/31/2025 Generated for Printi ng/Faxing/eTransmitting on: 0 05/23/2025 03:05 PM EDT
--- OUTSIDE RECORDS SUMMARY | 2025-03-29 12:30 | XMS_ITS ---
Author Organization [facility] [place] Address [address] [address] Care Team Providers Care Asset Management Analyst Name Role Phone Gwendolyn Turner [phone] REASON FOR VISIT medication refill Medications Medication SIG (Take, Route, Frequency, Duration) Notes Start Date End Date Status Carvedilol 12.5 MG Tablet 1 tablet with food Orally Twice a day Active Losartan Potassium 100 MG Tablet 1 tablet Orally Once a day; Duration: 90 days Active Encounters Encounter Location Date Provider Diagnosis [facility], [address] [address] 03/29/2025 Gwendolyn Turner Benign essential hypertension I10 Assessments Encounter Date Diagnosis (ICD Code) Assessment Notes Treatment Notes Treatment Clinical Notes Section Notes 03/29/2025 Benign essential hypertension (ICD-10 - I10) Plan Of Treatment Medication Medication Name Sig Start Date Stop Date Notes Losartan Potassium 100 MG Tablet 1 tablet Orally Once a day; Duration: 90 days Next Appt Details Provider Name:Gwendolyn Turner, 05/29/2025 11:15:00 AM, [address] [place] [address], [place], [address], [phone] Progress Notes * MARJJOHN NESSDOB:1945 (80 yo F)Acc No.[id number]:03/29/2025 Patient: JOHN VENEGAS Provider: Carrie Turner :1945 A ge:80 Y S ex:Female Date:03/29/2025 Address:[address] [place], [place] [phone] Subjective: * Chief Complaints: * M edication refill * Medications: T akingLosartan Potassium 100 MG Tablet 1 tablet Orally Once a day Carvedilol 12.5 MG Tablet 1 tablet with food Orally Twice a day Taking Losartan Potassium 100 MG Tablet 1 tablet Orally Once a day Taking Carvedilol 12.5 MG Tablet 1 tablet with food Orally Twice a day Assessment: * Assessment: 1. B enign essential hypertension - I10 Plan: * Treatment: * Electronic signature of Hemalatha Turner on 05/23/2025 at 03:04 PM EDT Sign off status: Pending * Provider: Carrie Turner Date: 03/29/2025 Generated for Shanda silveira/Kenny/Isaías on: 05/23/2025 03:04 PM EDT
--- NOTE | 2025-05-23 12:52 | A.OFFVIS_ITS ---
Intake Visit Reasons: Results Allergies erythromycin base Allergy (Unknown, Verified 05/01/25 16:01) Unknown lisinopril (From Zestril) Allergy (Unknown, Verified 05/01/25 16:01) Unknown HPI Comments Details: 80 years old woman with ulcerative colitis, atrial fibrillation, hypertension, and cardiac pacemaker was seen in September of 2024 for gait disorder and anxiety. She had a CAT scan of brain done in [facility] revealing mild microvascular ischemic disease of brain. An MRI of brain at [facility] in December of 2024 revealed mild diffuse cerebral atrophy and mild microvascular ischemic changes. With no specific treatment for gait disorder, escitalopram 10 mg was prescribed for management of anxiety. She describes experiencing visual auras up to once every two months, starting with pinwheel lights in both eyes, which this time lasted for three hours. Onset occasions match descriptions as migraine aura without progression to headache. These episodes infrequently disrupt speech, resolved over approximately 24 hours, without residual deficits reported. She was here with no new symptoms. [facility] Medical History (Updated 05/23/25 @ 13:08 by Lian Thayer MD) Multifactorial gait disorder Osteoarthritis Cerebral microvascular disease Anxiety disorder Review of Systems Const Details: No further symptoms reported. Physical Exam Neuro Other: Mental Status: Alert and oriented to person, place, and time. Normal attention. Normal spontaneous speech, fluency, and comprehension. No obvious issues with mood and memory. Affect is appropriate. Cranial Nerves: CN II: Visual vieira full to confrontation, visual acuity intact. CN III, IV, : Pupils equal, round, reactive to light and accommodation. Extraocular movements are normal. CN V: Facial sensation is normal. CN VII: Facial movements symmetrical. CN VIII: Hearing intact to bedside conversation is normal. CN IX, X: Palate elevates symmetrically. CN XI: Shoulder shrug and head turn symmetrical. CN XII: Tongue midline without atrophy or fasciculations. Extrapyramidal: Full facial expressions and blinking. No rigidity. Movements are appropriate with no tremor or abnormality. Speech: Normal; no dysarthria or tremor. Assessment & Plan Assessment & Plan (1) Migraine equivalent syndrome: Comment: MRI brain WO at [facility] in Apr 2025: Questionable tiny acute infarct vs imaging artifact in left gonzalez radiata, mild T2 Flair lesions, ?MVD (reported) EEG at [facility] in : WNL Code(s): G43.109 - Migraine with aura, not intractable, without status migrainosus Category: Medical (2) Cerebral microvascular disease: Code(s): I67.89 - Other cerebrovascular disease Category: Medical Plan 80 years old woman with set of symptoms probably from migraine. Vascular disease or stroke was less likely. She was educated about this type of symptoms. Other possibility was a seizure disorder and a routine EEG was okay. If any further symptoms would happened and if they suggested possibility of seizure, further EEG monitoring might be needed. She is prescribed lexapro for anxiety. Coding Level of Care Code Est Pt Level 4 (29451) Diagnoses Migraine equivalent syndrome G43.109 Cerebral microvascular disease I67.89
--- OUTSIDE RECORDS SUMMARY | 2025-05-23 15:04 | XMS_ITS | Patient Health Record ---
Author Organization [facility] [place] Address [address] [place] [address] Care Team Providers Care Material Crew Supervisor Name Role Phone Butch Bo Unavailable [phone] Migration, Provider Unavailable Unavailable Gwendolyn Turner Unavailable [phone] Reason For Referral No Information Medications Medication SIG (Take, Route, Frequency, Duration) Notes Start Date End Date Status Carvedilol 12.5 MG Tablet 1 tablet with food Orally Twice a day Active Losartan Potassium 100 MG Tablet 1 tablet Orally Once a day; Duration: 90 days Active Encounters Encounter Location Date Provider Diagnosis [facility], [address] [address] 06/13/2024 Provider Migration [facility], [address] [address] 07/12/2024 Provider Migration [facility], [address] [address] 09/22/2024 Provider Migration [facility], [address] [address] 10/04/2024 Provider Migration [facility] [place] [address] [address] 10/04/2024 Butch Bo [facility], [address] [address] 01/03/2025 Butch Bo [facility] [place] [address] [address] 01/13/2025 Butch Bo [facility], [address] [address] 01/20/2025 Butch Bo [facility], [address] [place] [address] 01/31/2025 Butch Bo [facility] [place] [address] [facility] [address] [place] [address] 03/29/2025 Gwendolyn Turner Benign essential hypertension I10 Assessments Encounter Date Diagnosis (ICD Code) Assessment Notes Treatment Notes Treatment Clinical Notes Section Notes 03/29/2025 Benign essential hypertension (ICD-10 - I10) Plan Of Treatment Next Appt Details Provider Name:Gwendolyn Turner, 05/29/2025 11:15:00 AM, [address] [facility], [address], [place], [address], [id number] Insurance Providers Payer Name Payer Address Payer Phone Subscriber Number Group Number Insured Name Patient Relationship to Insured Coverage Start Date Coverage End Date [facility] Insurance [address] [place] [address] [id number] JOHN MCMAHAN Self - patient is the insured
--- OUTSIDE RECORDS SUMMARY | 2025-05-23 15:05 | XMS_ITS | Encounter Summary ---
Author Organization [facility] Address [address] [place] [address] Care Team Providers Care Site Auditor Name Role Phone Butch Bo Primary Care Provider [phone] Encounter Details Date Type Department Care Team (Late Contact Info) Description 07/20/2024 Nurse Triage [facility] Cardiology [facility] - [facility] [address] [facility] [address] [place] [address] Linsey Castro NP [address] [facility] [address] [place] [address] Social History Tobacco Use Types [...] Description 05/31/2025 8:10 AM EDT Office Visit [facility] Cardiology [facility] - [facility] [address] [facility] [address] [place] [address] Linsey Castro NP [address] [facility] [address] [place] [address] 08/04/2025 10:20 AM EST Office Visit Gastroenterology - [address] [facility] [address] [place] [address] Natalie Le MD [address] [place] [address] 01/18/2026 11:00 AM EDT Ancillary Procedure [facility] - [facility] [address] [facility] [address] [place] [address] documented as of this encounter Visit Diagnoses Not on filedocumented in this encounter Additional Health Concerns Infection Onset Date Last Indicated Resolved Time C. difficile Rule-Out 01/06/2025 01/06/20252024 2:14 PM EDT Gastrointestinal Rule-Out 01/06/2025 01/06/2025 3:45 PM EDT documented as of this encounter Care Teams Site Auditor Relationship Specialty Start Date End Date Butch Bo PA [address] [facility] [address] [place] [address] PCP - General Primary Care 10/10/24 documented as of this encounter
--- OUTSIDE RECORDS SUMMARY | 2025-05-23 15:05 | XMS_ITS | Encounter Summary ---
Author Organization [facility] Address [address] [place] [address] Care Team Providers Care Home Energy Consultant Supervisor Name Role Phone Butch Bo Primary Care Provider [phone] Encounter Details Date Type Department Care Team (Late Contact Info) Description 01/31/2025 Lab Requisition [facility] - Main Lab [address] [facility] [place] [phone] Butch Bo PA [address] [facility] [address] [place], [place] [id number] Essential (primary) hypertension; Cardiac arrhythmia, unspecified; Chronic fatigue, unspecified; Other watermelon harvesting supervisor (current) drug therapy Social History Tobacco [...] Description 05/31/2025 8:10 AM EDT Office Visit [facility] - [address] [facility] [address] [place] [address] Linsey Castro, VIDEOGRAPHER [address] [place] [address] 08/04/2025 10:20 AM EST Office Visit Gastroenterology - [address] [place] [address] Natalei Le MD [address] [place] [phone] 01/18/2026 11:00 AM EDT Ancillary Procedure [facility] [address] [facility] [address] [place] [phone] documented as of this encounter Procedures Procedure Name Priority Date/Time Associated Diagnosis Comments URINALYSIS WITH REFLEX MICROSCOPIC AND CULTURE Routine 01/31/2025 12:00 AM EDT Essential (primary) hypertension Cardiac arrhythmia, unspecified Chronic fatigue, unspecified Other watermelon harvesting supervisor (current) drug therapy ALVAREZ URINE CULTURE TUBE Routine 01/31/2025 12:00 AM EDT Essential (primary) hypertension Cardiac arrhythmia, unspecified Chronic fatigue, unspecified Other watermelon harvesting supervisor (current) drug therapy TIGER TOP URINE TUBE Routine 01/31/2025 12:00 AM EDT Essential (primary) hypertension Cardiac arrhythmia, unspecified Chronic fatigue, unspecified Other watermelon harvesting supervisor (current) drug therapy YELLOW URINE NO ADDITIVE Routine 01/31/2025 12:00 AM EDT Essential (primary) hypertension Cardiac arrhythmia, unspecified Chronic fatigue, unspecified Other watermelon harvesting supervisor (current) drug therapy URINALYSIS WITH REFLEX MICROSCOPIC AND CULTURE Routine 01/31/2025 12:00 AM EDT Essential (primary) hypertension Cardiac arrhythmia, unspecified Chronic fatigue, unspecified Other watermelon harvesting supervisor (current) drug therapy CULTURE URINE Routine 01/31/2025 12:00 AM EDT Essential (primary) hypertension Cardiac arrhythmia, unspecified Chronic fatigue, unspecified Other watermelon harvesting supervisor (current) drug therapy documented in this encounter Results * Culture urine (01/31/2025 12:00 AM EDT) Culture, Urine 10,000-49,000 CFU/mL Mixed urogenital mary kate, no uropathogens present. Suggest repeat specimen if clinically indicated. 02/02/2025 11:36 AM EDT [facility] Urine Urine specimen obtained by clean catch procedure / Unknown 01/31/2025 01/31/2025 10:12 PM EDT us Butch ARMAS LAB MICROBIOLOGY - GENERAL ORD ERABLES Final Result Performing Organization Address City/[facility]/ZIP Co de Phone Number [facility] [address] [place] [address], [place] [phone] * Yellow urine no additive (01/31/2025 12:00 AM EDT) Extra Tube Hold for add-ons. 01/31/2025 8:01 PM EDT [facility] Comment:Auto resulted. Urine Urine specimen obtained by clean catch procedure / Unknown 01/31/2025 01/31/2025 6:26 PM EDT us Butch ARMAS LAB URINE ORDERABLES Final Res ult [facility] [address] [place] [address], [place] [phone] * [place] top urine tube (01/31/2025 12:00 AM EDT) Extra Tube Hold for add-ons. 01/31/2025 8:01 PM EDT [facility] Comment:Auto resulted. Urine Urine specimen obtained by clean catch procedure / Unknown 01/31/2025 01/31/2025 6:13 PM EDT us Butch ARMAS LAB URINE ORDERABLES Final Res ult Performing Organization Address [facility]/ZIP Co de Phone Number [facility] [address] [place] [address], [place] [phone] * Alvarez urine culture tube (01/31/2025 12:00 AM EDT) Pathologist [facility] Extra Tube Hold for add-ons. 01/31/2025 8:01 PM EDT [facility] Comment:Auto resulted. Urine Urine specimen obtained by clean catch procedure / Unknown 01/31/2025 01/31/2025 6:13 PM EDT Butch ARMAS LAB URINE ORDERABLES Final Res ult Performing Organization Address [facility]/ZIP Co de Phone Number [facility] [address] [place] [address], [place] [phone] * (ABNORMAL) Urinalysis with reflex microscopic and culture (01/31/2025 12:00 AM EDT) [facility] [place] Urine 1.007 1.003 - 1.030 LAB URINALYSIS - AUTOMATED METHOD 01/31/2025 10:[address] [facility] pH, Urine 6.0 5.0 - 8.0 pH LAB URINALYSIS - AUTOMATED METHOD 01/31/2025 10:[address] [facility] Leukocytes, Urine Large(A) Negative LAB URINALYSIS - AUTOMATED METHOD 01/31/2025 10:[address] [facility] Nitrite, Urine Negative Negative LAB URINALYSIS - AUTOMATED METHOD 01/31/2025 10:[address] [facility] Protein, Urine Negative <=Trace mg/dL LAB URINALYSIS - AUTOMATED METHOD 01/31/2025 10:[address] [facility] Glucose, Urine Negative Negative mg/dL LAB URINALYSIS - AUTOMATED METHOD 01/31/2025 10:[address] [facility] Ketones, Urine Negative Negative mg/dL LAB URINALYSIS - AUTOMATED METHOD 01/31/2025 10:[address] [facility] Urobilinogen, Urine 0.2 0.2 - 1.0 mg/dL LAB URINALYSIS - AUTOMATED METHOD 01/31/2025 10:[address] [facility] Bilirubin, Urine Negative Negative LAB URINALYSIS - AUTOMATED METHOD 01/31/2025 10:[address] [facility] Blood, Urine Negative Negative LAB URINALYSIS - AUTOMATED METHOD 01/31/2025 10:[address] [facility] RBC, Urine 4.0 0 - 4 /HPF LAB URINALYSIS - AUTOMATED METHOD 01/31/2025 10:[address] [facility] WBC, Urine 75.3(H) 0 - 4 /HPF LAB URINALYSIS - AUTOMATED METHOD 01/31/2025 10:[address] [facility] Squamous Epithelial, Urine 67(H) 0 - 60 /LPF LAB URINALYSIS - AUTOMATED METHOD 01/31/2025 10:[address] [facility] Bacteria, Urine Few(A) Negative /HPF LAB URINALYSIS - AUTOMATED METHOD 01/31/2025 10:[address] [facility] Hyaline Casts, Urine 2.0 0 - 3 /LPF LAB URINALYSIS - AUTOMATED METHOD 01/31/2025 10:[address] [facility] Urine Urine specimen obtained by clean catch procedure / Unknown 01/31/2025 01/31/2025 6:13 PM EDT us Butch ARMAS LAB URINE ORDERABLES Final Res ult [facility] [address] [place] [address], [place] [phone] documented in this encounter Visit Diagnoses Diagnosis Essential (primary) hypertension Unspecified essential hypertension Cardiac arrhythmia, unspecified Chronic fatigue, unspecified Other watermelon harvesting supervisor (current) drug therapy Encounter for adjustment or management of cardiac device documented in this encounter Care Teams Home Energy Consultant Supervisor Relationship Specialty Start Date End Date Butch Bo PA [address] [place] [address] PCP - General Primary Care 10/10/24 documented as of this encounter
--- OUTSIDE RECORDS SUMMARY | 2025-05-23 15:05 | XMS_ITS | Encounter Summary ---
Author Organization [facility] Address [address] [place] [address] Care Team Providers Care Head Transfer Clerk Name Role Phone Butch Bo Primary Care Provider [phone] Encounter Details Date Type Department Care Team (Late st Contact Info) Description 05/12/2025 Telephone [facility] - [address] [facility] [address] [place] [address] Delia Ruff MA Social History [...] as of this encounter Progress Notes * Linsey Castro NP - 05/18/2025 1:22 PM EDT Spoke with Betty - will decrease morning dose of Carvedilol to 12.5 mg in the morning only. She states she has been eating a more healthy diet with her daughter staying with her -unclear if this also translates to decreased sodium which would also impact her BP She will bring cuff to next OV * Estrella Cain RN - 05/16/2025 8:47 [...] appropriate. Of note, patient was discharged [place] [facility] [place] [facility] [place] ago with med changes after MRI revealed possible stroke. documented in this encounter Plan of Treatment Upcoming Encounters Date Type Department Care Team (Late st Contact Info) Description 05/31/2025 8:10 AM EDT Office Visit [facility] Cardiology [facility] - [address] [place] [phone] Linsey Castro NP [address] [place] [address] 08/04/2025 10:20 AM EST Office Visit Gastroenterology - [address] [place] [phone] Natalie Le MD [address] [place] [phone] 01/18/2026 11:00 AM EDT Ancillary Procedure [facility] - [address] [place] [address] documented as of this encounter Visit Diagnoses [...] 04/28/2025 added in this encounter Care Teams Head Transfer Clerk Relationship Specialty Start Date End Date Butch Bo PA [address] [place] [address] PCP - General Primary Care 10/10/24 documented as of this encounter
--- OUTSIDE RECORDS SUMMARY | 2025-05-23 15:05 | XMS_ITS | Clinical Summary ---
Author Organization [facility] Address [address] [place] [address] Care Team Providers Care Clinical Counselor Name Role Phone Danilo Shahid MD Primary Care Provider [phone] Allergies Active Allergy Reactions Criticality Noted Date [...] Status Comments Brother Alive Father (Age 66) OR at age 44 Mother (Age 89) No [...] age to complete this topic Care Teams Clinical Counselor Relationship Specialty Start Date End Date Danilo Shahid MD [address] [place] [address] PCP - General Internal Medicine 10/19/20
--- OUTSIDE RECORDS SUMMARY | 2025-05-23 15:05 | XMS_ITS | Encounter Summary ---
Author Organization [facility] Address [address] [place] [address] Care Team Providers Care Solvent Process Extractor Operator Name Role Phone Butch Bo Primary Care Provider [phone] Reason for Visit * Reason Onset Date Comments Appointment 04/24/2025 Encounter Details Date Type Department Care Team (Late st Contact Info) Description 04/24/2025 Telephone [facility] Cardiology [facility] [address] [place] [address] Delon Wasserman MD [address] [place] [address] [address] [place] [phone] Social History Tobacco Use Types Packs/Day Years [...] 3:50 PM EDT Can you please obtain [facility] records and scanned in for follow-up visit [...] Description 05/31/2025 8:10 AM EDT Office Visit [facility] [address] [facility] [address] [place] [phone] Linsey Castro PIT BOSS 300 [facility] [address] [place] [address] 08/04/2025 10:20 AM EST Office Visit Gastroenterology - [address] [facility] [address] [place] [phone] Natalie Le MD [address] [place] [address] 01/18/2026 11:00 AM EDT Ancillary Procedure [facility] [address] [facility] [address] [place] [phone] documented as of this encounter Visit Diagnoses Not on filedocumented in this encounter Care Teams Solvent Process Extractor Operator Relationship Specialty Start Date End Date Butch Bo PA 299 [facility] [address] [place] [address] PCP - General Primary Care 10/10/24 documented as of this encounter
--- OUTSIDE RECORDS SUMMARY | 2025-05-23 15:05 | XMS_ITS | Clinical Summary ---
Author Organization [address] [place] [address] Address [address] [place] [address] Phone Care Team Providers Care Supervisor Evaporator Name Role Phone Butch Bo Primary Care Provider [phone] Allergies Active Allergy Reactions Criticality Noted Date [...] dissolve, stir well and administer immediately). Active meclizine (ANTIVERT) 25 mg tablet Take [...] a day with meals. 04/28/20 25 Active folic acid (FOLVITE) 1 mg tablet Take 1 tablet (1 mg total) by mouth 1 (one) time each day. 30 tablet 3 05/19/20 25 Active losartan (COZAAR) 100 mg tablet Take 1 tablet (100 mg total) by mouth 1 (one) time each day. 025 Discontinu ed(Alterna te therapy) folic acid (FOLVITE) 1 mg tablet Take 1 tablet (1 mg total) by mouth 1 (one) time each day. 025 Discontinu ed(Reorder ) carvediloL (COREG) 12.5 mg tablet Take 1.5 [...] atrial appendage closure device. She has a [id number] score of 3 documented atrial fibrillation and [...] of near syncope I am going to mainframe programmer analyst her to a dual-chamber mode with a very long AV delay to minimize pacing. She is okay with this trial. Her MD interval is quite normal and I doubt [...] Description 05/16/2025 9:20 AM EDT Ancillary Procedure [facility] Cardiology [facility] - [address] [place] [address] 05/12/2025 Telephone [facility] Cardiology [facility] - [address] [place] [address] Delia Ruff MA 05/05/2025 Telephone [facility] - [address] [place] [address] Delon Wasserman MD 04/27/2025 Telephone [facility] - [address] [place] [address] Delon Wasserman MD 04/24/2025 Telephone [facility]iology [facility] - [address] [place] [address] Delon Wasserman MD 03/28/2025 9:35 AM EDT Ancillary Procedure [facility]iology [facility] - [address] [place] [address] 03/07/2025 11:10 AM EDT Office Visit [facility] Cardiology [facility] - [address] [place] [address] Linsey Castro NP Paroxysmal atrial fibrillation ([facility] V24, CMS/[facility] V28) (Primary Dx) from Last 3 Months Medical History Medical History Date Comments Sick sinus syndrome (CMS/HCC V24, CMS/HCC V28) Benign essential hypertension Palpitations Paroxysmal atrial fibrillation (CMS/HCC V24, CMS /HCC V28) PVC (premature ventricular contraction) Crohn disease (CMS/[facility] V24, CMS/HCC V28) Social History Tobacco Use [...] Office Visit [facility] - [facility] [address] [facility] [address] [place] [phone] Linsey Castro NP [address] [place] [address] 08/04/2025 10:20 AM EST Office Visit Gastroenterology - [address] [facility] [address] [place] [address] Natalie Le MD [address] [place] [phone] 01/18/2026 11:00 AM EDT Ancillary Procedure [facility]iology [facility] - [facility] [address] [facility] [address] [place] [phone] Health Maintenance Due Date Last Done Comments Pneumococcal Vaccine: 50+ Years (1 of 2 - PCV) 1964 Falls Risk Assessment 08/23/2022 Hepatitis C Screening 08/23/2022 Osteoporosis Screening (Bone Density Screening) 08/23/2022 Social Influencers of Health Screening 08/23/2022 Depression Screening 09/14/2024 COVID-19 Vaccine (8 - Pfizer risk 2023- season) 2025 06/23/2024, 08/18/2023, 10/22/2022, Additional history [...] this topic Medical Devices Implanted Type Area Steno Typist Device Identifier Shelf Expiration Date Model / Serial / Lot SaloniKateDuy Soto [id number] Implanted:12/2014 (Quantity not on file) Cardiac Pacemaker [employer]RONIAbhinav SOTO / [id number] / Procedures Procedure Name Priority Date/Time Associated [...] period is included. Date Time Interrogation Session [id number] CV DEVICE CHECK Type Interrogation Session Remote CV DEVICE CHECK Implantable Pulse Generator Steno Typist BIO CV DEVICE CHECK Implantable Pulse Generator Type IPG CV DEVICE CHECK Implantable Pulse Generator Model Eluna 8 DR-T CV DEVICE CHECK Implantable Pulse Generator Serial Number [id number] CV DEVICE CHECK Implantable Pulse Generator Implant Date [id number] CV DEVICE CHECK Battery Remaining Percentage 35.00 CV DEVICE CHECK Battery Status Middle of Service CV DEVICE CHECK Wesley Statistic RA Percent Paced 59.00 CV DEVICE CHECK Wesley Statistic RV Percent Paced 8.00 CV DEVICE CHECK Atrial Tachy Statistic AT/AF [place] Percent 0.00 CV DEVICE CHECK Lead Channel [...] above typical range * Patient discharged from [facility] about 2 weeks ago after MRI revealed possible stroke, med changes noted in chart * Message sent to triage to assess patient. Narrative Procedure Note Apurva Muhammad PA - 05/16/2025 IMPRESSION: Heart Failure Diagnostic: Elevated * Heart failure diagnostics assessed through the device * Status: Elevated * Thoracic Impedance is well above typical range * Patient discharged from [facility] about 2 weeks ago after MRI revealedpossible stroke, med changes noted in chart * Message sent to triage to assess patient. Apurva ARMAS CV IMPLANTABLE CARDIAC DEVICE MD OCEDURES Final Result * External clinical lab (04/24/2025 3:34 PM EDT) Historical Provider LAB BLOOD ORDERABLES Shelia l Result * (ABNORMAL) Lipid panel with reflex to direct LDL (01/03/2025 12:43 PM EDT) Cholesterol 224(H) 0 - 200 mg/dL LAB CHEMISTRY METHOD 01/03/2025 3:12 PM EDT [facility] Triglycerides 72 0 - 150 mg/dL LAB CHEMISTRY METHOD 01/03/2025 3:12 PM EDT [facility] HDL 87 >=40 mg/dL LAB CHEMISTRY METHOD 01/03/2025 3:12 PM EDT [facility] LDL Calculated 123(H) 0 - 100 mg/dL LAB CHEMISTRY METHOD 01/03/2025 3:12 PM EDT [facility] VLDL Cholesterol Derick 14.4 mg/dL LAB CHEMISTRY METHOD 01/03/2025 3:12 PM EDT [facility] Non HDL Chol. (LDL+VLDL) 137 <145 mg/dL LAB CHEMISTRY METHOD 01/03/2025 3:12 PM EDT [facility] Chol/HDL Ratio 2.6 0.0 - 4.4 LAB CHEMISTRY METHOD 01/03/2025 3:12 PM EDT [facility] Blood Venous blood specimen / Unknown Venipuncture / Unknown 01/03/2025 12:43 PM EDT 01/03/2025 1:31 PM EDT us Butch ARMAS LAB BLOOD ORDERABLES Final Res ult [facility] [address] [place] [address], [place] [phone] * (ABNORMAL) Comprehensive metabolic panel (01/03/2025 12:43 [...] 73m2 LAB CHEMISTRY METHOD 01/03/2025 3:10 PM [facility] Comment:Calculation based on the Chronic Kidney Disease Epidemiology Collaboration (CKD-EPI) equation refit without adjustment for race. BUN/Creatinine Ratio 9.3 LAB CHEMISTRY METHOD 01/03/2025 3:10 PM [facility] Calcium 9.2 8.5 - 10.5 mg/dL LAB CHEMISTRY METHOD 01/03/2025 3:10 PM [facility] AST (SGOT) 13 10 - [...] 3:10 PM [facility] Blood Venous blood specimen / Unknown Venipuncture / Unknown 01/03/2025 12:43 PM EDT 01/03/2025 1:31 PM EDT us Butch ARMAS LAB BLOOD ORDERABLES Final Res ult [facility] [address] [place] [address], * External Colonoscopy Report (12/02/2024 10:01 AM EDT) Anatomical Region Laterality Modality Endoscopy us Historical Provider GI~PROCEDURE ORDERABLES F inal Result from Last 3 Months or Most Recently Relevant to Health Maintenance Insurance [facility] Care Teams Supervisor Evaporator Relationship Specialty Start Date End Date Butch Bo PA [address] [address] PCP - General Primary Care 10/10/24
== END 2025-05-23 13:21 | disposition home or self-care (01) ==
LOC: HO.HSM 12:46
PROVIDERS: Visit Provider Psychiatry & Neurology Neurology
DX: G43.109 Migraine with aura, not intractable, without status migrainosus (principal); I67.89 Other cerebrovascular disease
CPT/HCPCS: 99214